=== PATIENT | female | born 1970 | race Caucasian/White ===

== ENCOUNTER 2016-04-06 12:33 | Emergency (ER) ==
[2016-04-06 12:34] VITALS: BMI 24.7
[2016-04-06 12:42] VITALS: BP 143/91; TEMP 99
[2016-04-06 12:50] LABS: BASOPHILS # (AUTO) 0.1 K/uL (0-0.2); BASOPHILS % (AUTO) 0.7 % (0.0-3.0); EOSINOPHILS # (AUTO) 0.1 K/ul (0.0-0.7); EOSINOPHILS % (AUTO) 0.8 % (0.0-7.0); HEMATOCRIT 39.5 % (37.0-47.0); HEMOGLOBIN 13.3 g/dl (12.0-16.0); IMMATURE GRANULOCYTE % (AUTO) 0.4 % (0.0-5.0); LYMPHOCYTES # (AUTO) 1.7 K/uL (0.60-3.4); LYMPHOCYTES % (AUTO) 16.3 (10.0-50.0); MEAN CORPUSCULAR HEMOGLOBIN 29.9 pg (27.0-31.0); MEAN CORPUSCULAR HGB CONC 33.7 (31.8-35.4); MEAN CORPUSCULAR VOLUME 88.8 fl (81.0-99.0); MONOCYTES # (AUTO) 0.6 K/uL (0.4-2.0); MONOCYTES % (AUTO) 5.4 (0-10); NEUTROPHILS # (AUTO) 8.2 K/ul (2.0-6.9); NEUTROPHILS % (AUTO) 76.4; PLATELET COUNT 245 10^3/uL (140-440); RED BLOOD COUNT 4.45 10^6/ul (4.20-5.40)
--- NOTE | 2016-04-06 12:59 | ED.PDOC ---
General ED Provider: Dr. RENAE ETIENNE JR Chief Complaint: Altered Mental Status Stated Complaint: presently jailed at [facility]--garth called and stated that another female inmate had snuck in meth and had given substance to this pt--she states was not aware of what it was--taken on 04/03/16--has been having odd behavior with loud talking--hearing voices in her head-garth states very anxious--feels soa at times[ End ]99.0 96 26 98% 143/91 [ End ] pt was talking out loud--y anxious-- hearing voices--felt like she was forgetting to breathe--admit to taking "something" on 04/03/16 from another inmate--is alert-- color good--aware of surroundings[ End ] Time Seen by Physician: 13:20 Mode of Arrival: Walk-In Information Source: Patient, Police Exam Limitations: No limitations Nursing and Triage Documentation Reviewed and Agree: No Review of Systems - Review Of Systems Constitutional: Reports: Malaise, Loss of appetite Eyes: Reports: Pain, Photophobia Ears, Nose, Mouth, Throat: Reports: No symptoms Respiratory: Reports: Short of air Cardiac: Reports: Chest pain (tightness; more on right), Lightheadedness, Palpitations GI: Reports: Abdominal pain (LLQ- I haven't had a bowel movemnet in forever") : Reports: No symptoms Musculoskeletal: Reports: No symptoms Skin: Reports: Lesions (red spots on right hand dorsum"hit it on the wall"), Lumps Neurological: Reports: Headache Endocrine: Reports: No symptoms Hematologic/Lymphatic: Reports: No symptoms All Other Systems: Other Past Medical History - Past Medical History Endocrine: Reports: None Cardiovascular: Reports: None Respiratory: Reports: None Hematological: Reports: None Gastrointestinal: Reports: None Genitourinary: Reports: None Neuro/Psych: Reports: None Musculoskeletal: Reports: None Cancer: Reports: None Last Menstrual Period: last week - Surgical History General Surgical History: Reports: Tubal ligation, Orthopedic (NECK) - Family History Family History: Reports: Unknown - Social History Smoking Status: Current every day smoker Hx Substance Use: No Alcohol Screening: Occasionally Physical Exam - Physical Exam Appearance: Well-appearing Ill-appearing: Moderate Pain Distress: Moderate Eyes: IRA, EOMI, Conjunctiva clear ENT: Ears normal, Nose normal, Oropharynx normal Neck: Supple Respiratory: Airway patent, Breath sounds equal, Respirations nonlabored, Rhonchi Cardiovascular: RRR, Pulses normal, No rub, No murmur GI/: Soft, No masses, Bowel sounds normal, No Organomegaly, Tender (LLQ concistent with constipation) Musculoskeletal: Normal strength, ROM intact, No edema, No calf tenderness Skin: Warm, Dry, Normal color Neurological: Sensation intact, Alert, Oriented Psychiatric: Anxious (hearing voices- yelling echoing saying things and not saying anything no threats or commands denies suicidality but notes she was hitting her head against the wall"to get them to stop") Interpretation - EKG Interpretation Time of EKG #1: 12:58 Rate: Normal Rhythm: Sinus Ectopy: None [place]: NL ST Segment: Normal Re-Evaluation - Re-Evaluation Time of Re-Evaluation: 14:40 (counsellor states not suicidal paitient willing to undergo treatment , note incident precipitated by "snorting a line") Status: Improved Vital Signs Stable: Yes Pain Level: no headache-offered geodon one time- no chrnic psych meds- anticipate resol Appearance: NAD (anxious(anticipate resolution no guarantee of durability of improvement- no known prior history of hallucinations)) Additional Comments: Noise echoing voices- no commands Critical Care Note - Critical Care Note Total Time (mins): 5 Course - Course Hematology/Chemistry: 04/06/16 12:45 04/06/16 12:45 Orders, Labs, Meds: Lab Review 04/06/16 04/06/16 12:45 13:45 WBC 10.70 H RBC 4.45 Hgb 13.3 Hct 39.5 MCV 88.8 MCH 29.9 MCHC 33.7 RDW Coeff of Roshan 12.2 Plt Count 245 Immature Gran % (Auto) 0.4 Neut % (Auto) 76.4 Lymph % (Auto) 16.3 [place] % (Auto) 5.4 Eos % (Auto) 0.8 Baso % (Auto) 0.7 Immature Gran # (Auto) 0.0 Neut # 8.2 H Lymph # 1.7 [place] # 0.6 Eos # 0.1 Baso # 0.1 Sodium 142 Potassium 4.3 Chloride 105 Carbon Dioxide 27 Anion Gap 14.3 BUN 19 H Creatinine 0.79 Estimated GFR (MDRD) 79.00 BUN/Creatinine Ratio 24.05 Glucose 96 Calcium 9.8 Total Bilirubin 0.74 AST 26 ALT 51 Alkaline Phosphatase 67 Total Protein 8.0 Albumin 4.4 Globulin 3.6 Albumin/Globulin Ratio 1.22 TSH 0.860 Urine Color Yellow Urine Clarity Cloudy Urine pH 5.5 Ur Specific [place] 1.025 Urine Protein 1+ Urine Glucose (UA) Negative Urine Ketones 2+ Urine Blood Trace-intact Urine Nitrite Negative Urine Bilirubin Negative Urine Urobilinogen 0.2 Ur Leukocyte Esterase Trace Urine Microscopic RBC 2-5 Urine Microscopic WBC 2-5 Ur Squamous Epith Cells 30-50 Amorphous Sediment 2+ Urine Bacteria 1+ Salicylate Level mg/dL < 5.0 Urine Opiates Screen Negative Ur Oxycodone Screen Negative Urine Methadone Screen Negative Ur Propoxyphene Screen Negative Acetaminophen < 3 L Ur Barbiturates Screen Negative U Tricyclic Antidepress Negative Ur Phencyclidine Scrn Negative Ur Amphetamine Screen Positive U Methamphetamines Scrn Negative U Benzodiazepines Scrn Positive Urine Cocaine Screen Negative U Cannabinoids Screen Negative Plasma/Serum Alcohol < 10.0 Orders Category Date Time Status EKG-(ED ONLY) Stat CARDIO 04/06/16 12:36 Completed Consult Mental Health [ED MENTAL HEALTH CONSULT] .ONCE EMERGENCY 04/06/16 13: 26 Active ED PRIEST APPLIED ONCE EMERGENCY 04/06/16 12:36 Active ACETAMINOPHEN Stat LAB 04/06/16 12:45 Completed BLOOD ALCOHOL Stat LAB 04/06/16 12:45 Completed CBC W/ AUTO DIFF Stat LAB 04/06/16 12:45 Completed COMPREHENSIVE METABOLIC PANEL Stat LAB 04/06/16 12:45 Completed DRUG SCREEN, URINE, RAPID Stat LAB 04/06/16 13:45 Completed SALICYLATE Stat LAB 04/06/16 12:45 Completed THYROID STIMULATING HORMONE Stat LAB 04/06/16 12:45 Completed URINALYSIS C & S IF INDICATED Stat LAB 04/06/16 13:45 Completed URINE CULTURE Stat LAB 04/06/16 13:45 Received Sumatriptan Succinate [Imitrex] MEDS 04/06/16 13:26 Discontinued 6 mg SUBCUT ONCE STA Ziprasidone Mesylate [Geodon] MEDS 04/06/16 14:49 Discontinued 20 mg IM ONCE STA CT HEAD W/O CONTRAST Stat RADS 04/06/16 13:25 Completed Medications Discontinued Medications Generic Name Dose Route Start Last Admin Trade Name Katie PRN Reason Stop Dose Admin Sumatriptan Succinate 6 mg 04/06/16 13:26 04/06/16 13:46 Imitrex SUBCUT 04/06/16 13:27 6 mg ONCE STA Administration Ziprasidone 20 mg 04/06/16 14:49 Geodon IM 04/06/16 14:50 ONCE STA Vital Signs: Temp Pulse Resp BP Pulse Ox 04/06/16 12:34 99 F 96 H 26 H 143/91 H 98 Departure - Departure Time of Disposition: 14:47 (return to incarceration) Disposition: HOME SELF-CARE Discharge Problem: Auditory hallucinations, Drug abuse Instructions: Adverse Drug Reaction (ED) Condition: Stable Pt referred to PMD for follow-up: Yes Additional Instructions: avoid illegal drugs may discuss symptoms with nurse Tylenol for discomfort, increase fluids- 6 cups daily return if uncontrollable expect symptoms to resolve Allergies/Adverse Reactions: Allergies No Known Allergies Allergy (Verified 04/06/16 12:46) Home Medications: Ambulatory Orders 1 [No Reported Medications] 11/11/13
[2016-04-06] MEDS ORDERED: IMITREX SUBCUT STA (13:26)
[2016-04-06 13:33] LABS: ACETAMINOPHEN < 3 ug/ml (10-30); ALANINE AMINOTRANSFERASE 51 U/L (12-78); ALBUMIN 4.4 g/dL (3.4-5.0); ALBUMIN/GLOBULIN RATIO 1.22; ALKALINE PHOSPHATASE 67 U/L (42-98); ANION GAP 14.3; ASPARTATE AMINO TRANSFERASE 26 U/L (15-37); BILIRUBIN,TOTAL 0.74 mg/dL (0.00-1.20); BLOOD UREA NITROGEN 19 mg/dL (7-18); BUN/CREATININE RATIO 24.05; CALCIUM 9.8 mg/dL (8.2-10.2); CARBON DIOXIDE 27 mmol/L (21-32); CHLORIDE 105 mmol/L (98-107); CREATININE 0.79 mg/dL (0.60-1.30); GLUCOSE 96 mg/dL (70-110); POTASSIUM 4.3 mmol/L (3.5-5.10); SALICYLATE < 5.0 mg/dL (2.8-20.0); SODIUM 142 mmol/L (136-145)
[2016-04-06 13:55] LABS: BILIRUBIN,URINE Negative (NEGATIVE); KETONES,URINE 2+ (NEGATIVE); LEUKOCYTE ESTERASE ,URINE Trace (NEGATIVE); NITRITE,URINE Negative (NEGATIVE); PH,URINE 5.5 (5-9); PROTEIN,URINE 1+ (NEGATIVE); URINE, BLOOD Trace-intact (NEGATIVE)
[2016-04-06 13:59] LABS: ADD URINE MICROSCOPIC YES
[2016-04-06 14:00] LABS: BACTERIA,URINE 1+ (NOT PRESENT)
--- NOTE | 2016-04-06 14:05 | CT ---
EXAM: CT Head HISTORY: Struck head on the wall COMPARISON: None TECHNIQUE: CT head performed without contrast FINDINGS: There is no mass effect, midline shift, or intracranial hemmorhage. Joel white different iation is preserved. There is no extra-axial collection. The ventricles, sulci, and basal cisterns are patent and symmetric. Questionable low-lying cerebellar tonsils versus technique/positioning. T here is no depressed calvarial fracture. The mastoid air cells are clear. Mild mucosal thickening m axillary sinuses IMPRESSION: 1. No acute intracranial abnormality. 2. Questionable low-lying cerebellar tonsils versus technique/positioning. 3. Mild sinus mucosal changes.
[2016-04-06 14:06] LABS: COCAIN SCREEN,URINE NEGATIVE (NEGATIVE)
[2016-04-06] MEDS ORDERED: GEODON IM STA (14:49)
== END 2016-04-06 15:45 | disposition home or self-care (01) ==
LOC: ED 12:33
DX: F15.151 Other stimulant abuse with stimulant-induced psychotic disorder with hallucinations (principal); R41.82 Altered mental status, unspecified; R51 Headache; R07.89 Other chest pain; R42 Dizziness and giddiness; R10.32 Left lower quadrant pain; K59.00 Constipation, unspecified; F17.210 Nicotine dependence, cigarettes, uncomplicated
CPT/HCPCS: 36415; 80053; 80306; 80307; 81001; 84443; 85025; 87086; 93005; 93010; 96372; 99283

== ENCOUNTER 2016-06-21 07:54 | Emergency (ER) ==
[2016-06-21 07:54] VITALS: BMI 24.7
[2016-06-21 07:58] VITALS: BP 100/67; TEMP 98.6
[2016-06-21 08:20] LABS: ADD URINE MICROSCOPIC YES; BILIRUBIN,URINE 2+ (NEGATIVE); KETONES,URINE 1+ (NEGATIVE); LEUKOCYTE ESTERASE ,URINE 2+ (NEGATIVE); NITRITE,URINE Negative (NEGATIVE); PROTEIN,URINE 2+ (NEGATIVE); URINE, BLOOD 2+ (NEGATIVE)
[2016-06-21 08:23] LABS: BACTERIA,URINE 2+ (NOT PRESENT)
--- NOTE | 2016-06-21 08:27 | ED.PDOC ---
General ED Provider: Dr. RENAE ETIENNE JR Chief Complaint: Back Pain Stated Complaint: states lower back pain past 3 days with fever--did not take temp but had chills and sweats--thinks might be "kidney infection"--same sx in past]3 days. Psychological Problems: 74: 04/06/16: Altered Mental Status. 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 Skin:(red spots on right hand dorsum"hit it on the wall"), Lumps: Tubal ligation, Orthopedic (NECK). Tender (LLQ concistent with constipation). Psychiatric: Anxious (hearing voices- yelling echoing saying things and not saying anything no threats or commands denies suicidality but notes she was hitting her head against the wall"to get them to stop"): 14: 40 (counsellor states not suicidal paitient willing to undergo treatment , note incident precipitated by "snorting a line"): no headache-offered michaeldon one time - no chrnic psych meds- anticipate resol(anticipate resolution no guarantee of durability of improvement- no known prior history of hallucinations)). Ur Amphetamine Screen Positive. U Methamphetamines Scrn Negative. U Benzodiazepines Scrn Positive. Urine Cocaine Screen Negative. U Cannabinoids Screen Negative. Plasma/Serum Alcohol < 10.0. Consult Mental Health [ED MENTAL HEALTH CONSULT] .ONCEEMERGENCY. Sumatriptan Succinate 6 mg 04/06/16. Ziprasidone 20 mg 04/06/16 14:49 Geodon IM 04/06/16 14:50. 04/06/16 12:34 99 F 96 H 26 H 143/91 H 98 (return to incarceration). Auditory hallucinations, Drug abuse. Instructions: Adverse Drug Reaction (ED). Pt referred to PMD for follow-up: Yesavoid illegal drugs. may discuss symptoms with nurseTylenol for discomfort, increase fluids- 6 cups dailyreturn if uncontrollableexpect symptoms to resolve. : 11/11/13 : Urinary Problem: noted dysuria, frequency and : Painful urination: 5 days: Still present: Left, Flank, Suprapubics: Burning, Dysuria, Frequency, Flank pain, Pain, Urgencys: Orthopedice: Well- appearing, >=1.030 Negative. her main issue is dysuria, frquency, urgency....she did have some fleeting lower back pain that has resolved..no fever, no hematuria..bactrim ds bid x 5 days..pyridium 200mg tid with food # 6..recheck with urine culture in 2 days..if urine cult is neg...you will need to see your sensitizer Time Seen by Physician: 08:26 Mode of Arrival: Walk-In Information Source: Patient Exam Limitations: No limitations Nursing and Triage Documentation Reviewed and Agree: No Review of Systems - Review Of Systems Constitutional: Reports: Chills, Fever, Malaise, Weakness Eyes: Reports: No symptoms Ears, Nose, Mouth, Throat: Reports: No symptoms Respiratory: Reports: No symptoms Cardiac: Reports: No symptoms GI: Reports: Abdominal pain : Reports: Burning, Dysuria, Frequency, Flank pain Musculoskeletal: Reports: No symptoms Skin: Reports: No symptoms Neurological: Reports: No symptoms Endocrine: Reports: No symptoms Hematologic/Lymphatic: Reports: No symptoms All Other Systems: Other Past Medical History - Past Medical History Endocrine: Reports: None Cardiovascular: Reports: None Respiratory: Reports: None Hematological: Reports: None Gastrointestinal: Reports: None Genitourinary: Reports: None Neuro/Psych: Reports: None Musculoskeletal: Reports: None Cancer: Reports: None Last Menstrual Period: 1 week ago - Surgical History General Surgical History: Reports: Tubal ligation, Orthopedic (NECK) - Family History Family History: Reports: Unknown - Social History Smoking Status: Current every day smoker, Heavy tobacco smoker Hx Substance Use: No Alcohol Screening: Occasionally Physical Exam - Physical Exam Appearance: Well-appearing, Thin Pain Distress: Mild Neck: Supple Respiratory: Airway patent GI/: Soft, Tender (right asuprapubic no cva or back tenderness) Skin: Warm, Dry, Normal color Neurological: Sensation intact, Motor intact, Reflexes intact, Cranial nerves intact, Alert, Oriented Critical Care Note - Critical Care Note Total Time (mins): 0 Course - Course Orders, Labs, Meds: Lab Review 06/21/16 08:10 Urine Color Yellow Urine Clarity Cloudy Urine pH 6.0 Ur Specific [place] 1.025 Urine Protein 2+ Urine Glucose (UA) Negative Urine Ketones 1+ Urine Blood 2+ Urine Nitrite Negative Urine Bilirubin 2+ Urine Urobilinogen 1.0 Ur Leukocyte Esterase 2+ Urine Microscopic RBC 5-10 Urine Microscopic WBC 20-30 Ur Squamous Epith Cells 10-20 Urine Bacteria 2+ Orders Category Date Time Status UA [URINALYSIS C & S IF INDICATED] Stat LAB 06/21/16 08:10 Results URINE CULTURE Routine LAB 06/21/16 08:24 Received Vital Signs: Temp Pulse Resp BP Pulse Ox 06/21/16 07:54 98.6 F 102 H 20 100/67 97 Departure - Departure Time of Disposition: 08:27 Disposition: HOME SELF-CARE Discharge Problem: UTI (urinary tract infection) Qualifiers: Urinary tract infection type: acute cystitis Hematuria presence: with hematuria Qualifier Code: (N30.01) Acute cystitis with hematuria Instructions: Urinary Tract Infection in Women (ED) Condition: Good Pt referred to PMD for follow-up: Yes Additional Instructions: increase fluids 8-10 cups daily for three days antibiotic until gone may check culture in two days recheck PMD one week, sooner if not resolved may follow up withy [facility] Prescriptions: Sulfamethoxazole/Trimethoprim [Bactrim Ds 800/160 mg] 1 tab PO Q12HR #14 tablet Phenazopyridine HCl [Pyridium] 200 mg PO TID PRN #10 tablet PRN Reason: PAIN Allergies/Adverse Reactions: Allergies No Known Allergies Allergy (Verified 06/21/16 08:00) Home Medications: Ambulatory Orders Phenazopyridine HCl [Pyridium] 200 mg PO TID PRN #10 tablet 06/21/16 Sulfamethoxazole/Trimethoprim [Bactrim Ds 800/160 mg] 1 tab PO Q12HR #14 tablet 06/21/16
== END 2016-06-21 08:35 | disposition home or self-care (01) ==
LOC: ED 07:54
DX: N30.01 Acute cystitis with hematuria (principal); F17.210 Nicotine dependence, cigarettes, uncomplicated
CPT/HCPCS: 81001; 87086; 87186; 99283

== ENCOUNTER 2017-04-02 01:07 | Emergency (ER) ==
[2017-04-02 01:10] VITALS: BMI 24.0
[2017-04-02] MEDS ORDERED: SODIUM CHLORIDE 1,000 ML IV STA (01:17)
[2017-04-02] MEDS ORDERED: ZOFRAN 4 MG/2 ML IVP STA (01:18)
[2017-04-02] MEDS: DILAUDID 1 MG/ML SYRINGE IVP PRN ×3 (01:35→04:00)
[2017-04-02] MEDS ORDERED: DILAUDID 1 MG/ML SYRINGE ONE ×3 (01:37→03:51)
--- NOTE | 2017-04-02 02:51 | CT ---
EXAM: CT scan abdomen pelvis with without contrast HISTORY: Left lower quadrant pain COMPARISON: None. FINDINGS: Contiguous axial images obtained through the abdomen pelvis both before after uneventful a dministration intravenous contrast utilizing 3-mm collimation. Sagittal and coronal reconstructions were imaged and reviewed The visualized lung bases are clear. Gallbladder is fluid filled without c holelithiasis. The liver, pancreas, spleen and adrenal glands have normal enhanced CT appearance. T he kidneys excrete contrast in a normal fashion bilaterally. The abdominal aorta is normal in course and caliber without aneurysm formation. There is moderate gaseous distension of the ascending and t ransverse colon. Mild stool retention is seen in the rectosigmoid colon. There is no free fluid or inflammatory changes.. Bone windows revealed no evidence of lytic or blastic lesions. IMPRESSION: Moderate distension of the ascending and transverse colon suggestive of colonic ileus.. Mild stool retention rectosigmoid colon. No evidence of free fluid or inflammatory changes.
--- NOTE | 2017-04-02 04:00 | ED.PDOC ---
General ED Provider: Dr. TREMAINE FRANKS-ER Chief Complaint: Abdominal Pain Stated Complaint: im hurting Time Seen by Physician: 00:10 Mode of Arrival: Walk-In Information Source: Patient Exam Limitations: No limitations Nursing and Triage Documentation Reviewed and Agree: Yes Reviewed sepsis parameters & appropriate labs ordered?: Yes System Inflammatory Response Syndrome: Not Applicable Sepsis Protocol: For patient's 13 years and over: Temp is 96.8 and below OR 101 and greater Pulse >90 BPM Resp >20/minute Acutely Altered Mental Status Are patient's symptoms suggestive of a new infection, such as: -Pneumonia -Skin, Soft Tissue -Endocarditis -UTI -Bone, Joint Infection -Implantable Device -Acute Abdominal Infection -Wound Infection -Meningitis -Blood Stream Catheter Infection -Unknown GI Complaint Exam - Abdominal Pain Complaint/Exam Onset: Sudden Duration: for several hours Symptoms Are: Still present Timing: Constant Initial Severity: Mild Current Severity: Moderate Location of Pain: Diffuse Character: Reports: Dull, Aching Alleviating: Reports: None Associated Signs and Symptoms: Reports: Nausea, Vomiting AAA Risk Factors: Reports: None Surgical Obstruction Risk Factors: Reports: None Patient Rh Status: Unknown Abdominal Findings: Present: None Differential Diagnoses: Pancreatitis, Ureteral Stone, PUD Quality Indicator For Non-Traumatic Chest Pain/Syncope: EKG Performed Review of Systems - Review Of Systems Constitutional: Reports: No symptoms Eyes: Reports: No symptoms Ears, Nose, Mouth, Throat: Reports: No symptoms Respiratory: Reports: No symptoms Cardiac: Reports: No symptoms GI: Reports: Abdominal pain, Nausea, Vomiting : Reports: No symptoms Musculoskeletal: Reports: No symptoms Skin: Reports: No symptoms Neurological: Reports: No symptoms Endocrine: Reports: No symptoms Hematologic/Lymphatic: Reports: No symptoms All Other Systems: Reviewed and Negative Past Medical History - Past Medical History Previously Healthy: Yes Endocrine: Reports: None Cardiovascular: Reports: None Respiratory: Reports: None Hematological: Reports: None Gastrointestinal: Reports: None Genitourinary: Reports: None Neuro/Psych: Reports: None Musculoskeletal: Reports: None Cancer: Reports: None Last Menstrual Period: 3 MONTHS AGO - Surgical History General Surgical History: Reports: Tubal ligation, Orthopedic (NECK) - Family History Family History: Reports: Unknown - Social History Smoking Status: Current every day smoker, Heavy tobacco smoker Hx Substance Use: No Alcohol Screening: Occasionally Lives: With family - Immunizations Tetanus Shot up to Date: Yes Physical Exam - Physical Exam Appearance: Well-appearing, No pain distress, Well-nourished Pain Distress: Moderate Eyes: IRA, EOMI, Conjunctiva clear ENT: Ears normal, Nose normal, Oropharynx normal Neck: Supple Respiratory: Airway patent, Breath sounds clear, Breath sounds equal, Respirations nonlabored Cardiovascular: RRR, Pulses normal, No rub, No murmur GI/: Soft, No masses, Bowel sounds normal, Tender Musculoskeletal: Normal strength Skin: Warm, Dry, Normal color Neurological: Sensation intact, Motor intact, Reflexes intact, Cranial nerves intact, Alert, Oriented Psychiatric: Affect appropriate, Mood appropriate Interpretation - Radiology Interpretation Radiology Interpretation By: Radiologist Radiology Results: Positive Exam Interpreted: CT Scan - EKG Interpretation Time of EKG #1: 04:00 Rate: Normal Rhythm: Sinus Ectopy: None [place]: NL ST Segment: Normal Interpretation: NSR Re-Evaluation - Re-Evaluation Time of Re-Evaluation: 04:01 Status: Improved Vital Signs Stable: Yes Pain Level: 1 Appearance: NAD Lungs: Clear Skin: Warm and Dry Neuro: Alert and Oriented X3 CV: RRR Critical Care Note - Critical Care Note Total Time (mins): 0 Course - Course Hematology/Chemistry: 04/02/17 01:30 04/02/17 01:30 Orders, Labs, Meds: Lab Review 04/02/17 04/02/17 04/02/17 01:30 01:30 01:55 WBC 8.52 RBC 4.45 Hgb 13.4 Hct 39.6 MCV 89.0 MCH 30.1 MCHC 33.8 RDW Coeff of Roshan 12.2 Plt Count 244 Immature Gran % (Auto) 0.5 Neut % (Auto) 56.7 Lymph % (Auto) 33.2 [place] % (Auto) 6.6 Eos % (Auto) 2.5 Baso % (Auto) 0.5 Immature Gran # (Auto) 0.0 Neut # 4.8 Lymph # 2.8 [place] # 0.6 Eos # 0.2 Baso # 0.0 Sodium 141 Potassium 4.0 Chloride 105 Carbon Dioxide 26 Anion Gap 14.0 BUN 14 Creatinine 0.78 Estimated GFR (MDRD) 80.00 BUN/Creatinine Ratio 17.94 Glucose 96 Calcium 9.6 Total Bilirubin 0.4 AST 14 L ALT 16 Alkaline Phosphatase 68 Total Creatine Kinase 38 Troponin I 0.0120 Total Protein 7.1 Albumin 3.7 Globulin 3.4 Albumin/Globulin Ratio 1.09 Amylase 43 Lipase 17 Urine Color Yellow Urine Clarity Clear Urine pH 5.5 Ur Specific [place] 1.025 Urine Protein Trace Urine Glucose (UA) Negative Urine Ketones Trace Urine Blood Trace-intact Urine Nitrite Positive Urine Bilirubin Negative Urine Urobilinogen 1.0 Ur Leukocyte Esterase Trace Urine Microscopic RBC 2-5 Urine Microscopic WBC 5-10 Ur Squamous Epith Cells 10-20 Calcium Oxalate Crystal 1+ Urine Bacteria Trace Urine Mucus 1+ Orders Category Date Time Status EKG-(ED ONLY) Stat CARDIO 04/02/17 01:17 Ordered NPO REMINDER: IMAGING ONCE CARE 04/02/17 01:19 Completed IV [ED IV/MEDIPORT/POWERPORT] .ONCE EMERGENCY 04/02/17 01:17 Active AMYLASE Stat LAB 04/02/17 01:30 Completed CBC W/ AUTO DIFF Stat LAB 04/02/17 01:30 Completed COMPREHENSIVE METABOLIC PANEL Stat LAB 04/02/17 01:30 Completed CREATINE KINASE Stat LAB 04/02/17 01:30 Completed LIPASE Stat LAB 04/02/17 01:30 Completed TROPONIN I Stat LAB 04/02/17 01:30 Completed URINALYSIS C & S IF INDICATED Stat LAB 04/02/17 01:55 Completed URINE CULTURE Stat LAB 04/02/17 01:55 Received 0.9 % Sodium Chloride [Saline Flush] MEDS 04/02/17 01:17 Ordered 1 syr IVF PRN PRN Hydromorphone HCl [Dilaudid 1 mg/ml Syringe] MEDS 04/02/17 01:18 Ordered 1 mg IVP Q1HR PRN Ondansetron HCl/Pf [Zofran 4 mg/2 ml] MEDS 04/02/17 01:18 Discontinued 4 mg IVP ONCE STA Sodium Chloride 0.9% [Sodium Chloride] 1,000 ml MEDS 04/02/17 01:17 Active IV 250 mls/hr CT ABDOMEN/PELVIS W/WO CONTRAS Stat RADS 04/02/17 01:19 Completed Medications Generic Name Dose Route Start Last Admin Trade Name Freq PRN Reason Stop Dose Admin Hydromorphone HCl 1 mg 04/02/17 01:18 04/02/17 02:35 Dilaudid 1 Mg/Ml Syringe IVP 1 mg Q1HR PRN Administration Abdominal Pain Sodium Chloride 1,000 mls @ 250 mls/hr 04/02/17 01:17 04/02/17 01:45 Sodium Chloride IV 04/02/17 05:16 250 mls/hr .Q4H STA Administration Sodium Chloride 1 syr 04/02/17 01:17 Saline Flush IVF PRN PRN To flush IV Discontinued Medications Generic Name Dose Route Start Last Admin Trade Name Freq PRN Reason Stop Dose Admin Ondansetron HCl 4 mg 04/02/17 01:18 04/02/17 01:35 Zofran 4 Mg/2 Ml IVP 04/02/17 01:19 4 mg ONCE STA Administration Vital Signs: Temp Pulse Resp BP Pulse Ox 04/02/17 01:07 97.3 F L 98 H 18 137/80 99 Departure - Departure Time of Disposition: 04:01 Disposition: TSF SHORT-TRM HOSP Discharge Problem: Abdominal pain Instructions: Acute Abdominal Pain (ED) Condition: Good Pt referred to PMD for follow-up: No IPMP verified?: No Allergies/Adverse Reactions: Allergies No Known Allergies Allergy (Verified 04/02/17 01:10) Home Medications: Ambulatory Orders 1 [No Reported Medications] 04/02/17 Transfer Form Completed: Yes Disposition Discussed With: Patient, Family
[2017-04-02 04:20] VITALS: BP 93/59; TEMP 97
== END 2017-04-02 04:30 | disposition short-term general hospital (02) ==
LOC: ED 01:07
DX: R10.84 Generalized abdominal pain (principal); R11.2 Nausea with vomiting, unspecified; F17.210 Nicotine dependence, cigarettes, uncomplicated
CPT/HCPCS: 36415; 80053; 81001; 82150; 82550; 83690; 84484; 85025; 87086; 93005; 93010; 96361; 96374; 96375; 96376; 99285

== ENCOUNTER 2017-04-02 04:29 | Outpatient (CLI) ==
[2017-04-02 01:10] VITALS: BMI 24.0
== END 2017-04-02 04:30 | disposition short-term general hospital (02) ==
LOC: AMBL 04:29
PROVIDERS: ATTEND Family Medicine
DX: R10.32 Left lower quadrant pain (principal); R11.10 Vomiting, unspecified

== ENCOUNTER 2017-05-27 16:50 | Outpatient (CLI) | END 2017-05-27 16:51 | disposition home or self-care (01) | LOC: AMBL 16:50 | PROVIDERS: ATTEND Emergency Medicine | DX: S01.112A Laceration without foreign body of left eyelid and periocular area, initial encounter (principal); R51 Headache; Y00.XXXA Assault by blunt object, initial encounter ==

== ENCOUNTER 2018-04-19 16:49 | Emergency (ER) | payer OTHER ==
[2018-04-19 17:04] VITALS: BP 116/80; TEMP 98.4; BMI 24.6
--- NOTE | 2018-04-19 17:58 | ED.PDOC ---
General ED Provider: Dr. MARCO SUNSHINE Chief Complaint: Rash Stated Complaint: rash face x 4 weeks Time Seen by Physician: 16:50 (seen with carlos a at all times ) Mode of Arrival: Walk-In Information Source: Patient Exam Limitations: No limitations Nursing and Triage Documentation Reviewed and Agree: Yes Does patient meet sepsis criteria?: No System Inflammatory Response Syndrome: Not Applicable Sepsis Protocol: For patient's 13 years and over: Temp is 96.8 and below OR 101 and greater Pulse >90 BPM Resp >20/minute Acutely Altered Mental Status Are patient's symptoms suggestive of a new infection, such as: -Pneumonia -Skin, Soft Tissue -Endocarditis -UTI -Bone, Joint Infection -Implantable Device -Acute Abdominal Infection -Wound Infection -Meningitis -Blood Stream Catheter Infection -Unknown Skin Complaint Exam - Skin Rash/Itching Complaint/Exam Onset/Duration: 4 weeks Symptoms Are: Still present Initial Severity: Mild Current Severity: Mild (see photos) Location: face see photos Potential Exposures: Reports: Unknown Aggravating: Reports: None Alleviating: Reports: None Associated Signs and Symptoms: Denies: Difficulty breathing, Fever, Chills Related History: Similar episode Skin Findings: Present: Maculae, Papules Differential Diagnoses: Allergic Reaction Review of Systems - Review Of Systems Constitutional: Reports: No symptoms Eyes: Reports: No symptoms Ears, Nose, Mouth, Throat: Reports: No symptoms Respiratory: Reports: No symptoms Cardiac: Reports: No symptoms GI: Reports: No symptoms : Reports: No symptoms Musculoskeletal: Reports: No symptoms Skin: Reports: Rash (see photos) Neurological: Reports: No symptoms Endocrine: Reports: No symptoms Hematologic/Lymphatic: Reports: No symptoms All Other Systems: Reviewed and Negative Past Medical History - Past Medical History Previously Healthy: Yes Endocrine: Reports: None Cardiovascular: Reports: None Respiratory: Reports: None Hematological: Reports: None Gastrointestinal: Reports: None Genitourinary: Reports: None Neuro/Psych: Reports: None Musculoskeletal: Reports: None Cancer: Reports: None Last Menstrual Period: 3 months ago--irregular - Surgical History General Surgical History: Reports: Tubal ligation, Orthopedic (NECK) - Family History Family History: Reports: Unknown - Social History Smoking Status: Current every day smoker, Heavy tobacco smoker Hx Substance Use: No Alcohol Screening: Occasionally Physical Exam - Physical Exam Appearance: Well-appearing, No pain distress, Well-nourished Eyes: IRA, EOMI, Conjunctiva clear ENT: Ears normal, Nose normal, Oropharynx normal Respiratory: Airway patent, Breath sounds clear, Breath sounds equal, Respirations nonlabored Cardiovascular: RRR, Pulses normal, No rub, No murmur GI/: Soft, Nontender, No masses, Bowel sounds normal, No Organomegaly Musculoskeletal: Normal strength, ROM intact, No edema, No calf tenderness Skin: Warm, Dry (rash face see photos) Neurological: Sensation intact, Motor intact, Reflexes intact, Cranial nerves intact, Alert, Oriented Psychiatric: Affect appropriate, Mood appropriate Critical Care Note - Critical Care Note Total Time (mins): 0 Course - Course Vital Signs: Temp Pulse Resp BP Pulse Ox 04/19/18 16:50 98.4 F 90 16 116/80 96 Departure - Departure Time of Disposition: 17:58 Disposition: HOME SELF-CARE Discharge Problem: Pruritic rash Instructions: Acute Rash (ED) Condition: Good Pt referred to PMD for follow-up: Yes IPMP verified?: No Additional Instructions: Please call your Family Physician as soon as possible to schedule a follow-up appointment. Allergies/Adverse Reactions: Allergies No Known Allergies Allergy (Verified 04/19/18 16:57)
== END 2018-04-19 18:07 | disposition home or self-care (01) ==
LOC: ED 16:49
DX: R21 Rash and other nonspecific skin eruption (principal); L29.9 Pruritus, unspecified
CPT/HCPCS: 99282

== ENCOUNTER 2022-09-06 08:59 | Observation (INO) ==
[2022-09-06] MEDS ORDERED: SODIUM CHLORIDE 1,000 ML IV STA ×2 (09:24)
[2022-09-06] MEDS ORDERED: SUBLIMAZE IVP ONE ×2 (09:25→13:15)
[2022-09-06] MEDS ORDERED: ZOFRAN 4 MG/2 ML IVP ONE (09:25)
[2022-09-06 09:31] LABS: BILIRUBIN,URINE 3+ (NEGATIVE); CLARITY,URINE Slightly (CLEAR); GLUCOSE, URINE (UA) 2+ (NEGATIVE); KETONES,URINE 1+ (NEGATIVE); LEUKOCYTE ESTERASE ,URINE 3+ (NEGATIVE); NITRITE,URINE Positive (NEGATIVE); PROTEIN,URINE 3+ (NEGATIVE); URINE, BLOOD 3+ (NEGATIVE); UROBILINOGEN,URINE >=8.0 (0.2)
[2022-09-06] MEDS ORDERED: VANCOMYCIN 1.5 GRAM/300 ML PREMIX 1.5 GM/300 ML BAG IV ONE (09:32)
[2022-09-06] MEDS ORDERED: MAXIPIME 2 GM/50 ML D5W 2 GM/50 ML BAG IV ONE (09:32)
[2022-09-06 09:42] LABS: COLOR,URINE ORANGE (YELLOW)
[2022-09-06 09:43] LABS: URINE RBC, MICROSCOPIC 20-30 (0-2)
[2022-09-06 09:44] LABS: BACTERIA,URINE 1+ (NOT PRESENT); URINE WBC, MICROSCOPIC 30-50 (0-2)
--- NOTE | 2022-09-06 09:44 | ED.PDOC ---
General ED Provider: Dr. MAAME SALAS DO Chief Complaint: Abdominal Pain Stated Complaint: Patient is a 52 yo F here for abdominal pain, dysuria and body aches Patient arrives afebrile with tachycardia 120 and stable blood pressure Patient arrives by POV She is currently fighting breast cancer She has had 3x chemo radiaiton events with [facility] Plan q 2 weeks for chemo tx then consider surgical options Patient reports 4 days of symptoms She is newly hpyoxic 91%, improved to 98% on 2 L NC Patient denies falls or injuries Patient meets sirs criteria With concern for sepsis-or neutropenic fever will start sepsis bundle She reported subjective fever at home and taking antipyretics. Time Seen by Provider: 09/06/22 09:03 Information Source: Patient Primary Care Provider: TREMAINE FRANKS Nursing and Triage Documentation Reviewed and Agree: Yes Does patient meet sepsis criteria?: No System Inflammatory Response Syndrome: Pulse >90 BPM Sepsis Protocol: For patient's 13 years and over: Temp is 96.8 and below OR 101 and greater Pulse >90 BPM Resp >20/minute Acutely Altered Mental Status Are patient's symptoms suggestive of a new infection, such as: -Pneumonia -Skin, Soft Tissue -Endocarditis -UTI -Bone, Joint Infection -Implantable Device -Acute Abdominal Infection -Wound Infection -Meningitis -Blood Stream Catheter Infection -Unknown Review of Systems Review Of Systems Constitutional: Reports Fever, Weakness and Sweats; Denies Chills Eyes: Denies Blurred vision or Drainage Ears, Nose, Mouth, Throat: Denies Ear pain, Nose pain or Nose discharge Respiratory: Denies Cough, Orthopnea or Wheezing Cardiac: Denies Chest pain or Lightheadedness GI: Reports Abdominal pain; Denies Constipated or Diarrhea : Reports Dysuria; Denies Discharge or Frequency Musculoskeletal: Denies Back pain or Joint pain Skin: Denies Bruising or Dryness Neurological: Denies Anxiety or Depressed Endocrine: Reports No symptoms Hematologic/Lymphatic: Reports No symptoms All Other Systems: Reviewed and Negative [facility] Medical History (Updated 09/06/22 @ 14:58 by BIA JONES) Breast cancer C50.919 - Malignant neoplasm of unspecified site of unspecified female breast (ICD-10) Family History Mother Cancer Hypertension Thyroid condition FATHER Diabetes Seasonal allergies Blood disease Adverse anesthesia outcome H/O elevated lipids Hypertension Thyroid condition Stroke Surgical History History of neck surgery Z98.890 - Other specified postprocedural states (ICD-10) History of tubal ligation Z98.51 - Tubal ligation status (ICD-10) Female Reproductive History Menstrual Hx Hysterectomy: No Hx Tubal Ligation: Yes Physical Exam Physical Exam Appearance: Reports Ill-appearing Ill-appearing: Moderate Pain Distress: Moderate Eyes: Reports IRA and EOMI ENT: Reports Ears normal and Nose normal Neck: Nonsupple Respiratory: Reports Airway patent and Breath sounds clear; Denies Crackles or Wheezes Cardiovascular: Reports Tachycardia; Denies No rub GI/: Reports Soft, Nontender and Other Musculoskeletal: Reports Normal strength and ROM intact Skin: Reports Warm and Dry Neurological: Reports Sensation intact and Motor intact Psychiatric: Reports Affect appropriate and Mood appropriate Interpretation EKG Interpretation EKG Interpretation By: ED Physician Time of EKG #1: 09:40 Rate: Tachy Rhythm: Sinus Ectopy: None [place]: [place] ST Segment: Normal Interpretation: No stemi, sinus tach 102 no qt prolongation Radiology Interpretation Radiology Interpretation By: ED Physician Exam Interpreted: CXR Xray Comments: No gross consolidaiotn no pneumothorax Critical Care Note Critical Care Note Total Critical Care Time (mins): 0 Course Course 09/06/22 09:43 09/06/22 09:43 Orders, Labs, Meds: Lab Review 09/06/22 09/06/22 09:15 09:43 WBC 1.03 L* RBC 3.81 L Hgb 11.4 L Hct 35.2 L MCV 92.4 MCH 29.9 MCHC 32.4 RDW Coeff of Roshan 12.2 Plt Count 66 L Neutrophils % (Manual) 6.0 L Band Neutrophils % 12.0 H Lymphocytes % (Manual) 52.0 H Monocytes % (Manual) 18.0 H Eosinophils % (Manual) 8.0 H Basophils % (Manual) 4.0 H Anisocytosis Not present Sodium 138.0 Potassium 3.80 Chloride 105.0 Carbon Dioxide 23.0 Anion Gap 13.80 BUN 8.0 Creatinine 0.70 Estimated GFR (MDRD) 89.00 BUN/Creatinine Ratio 11.42 Glucose 120.0 H Lactic Acid 1.14 Calcium 9.00 Total Bilirubin 0.40 AST 47.0 H ALT 49.0 H Alkaline Phosphatase 101.0 POC Venous Troponin I Cancelled Troponin I < 0.012 Total Protein 7.90 Albumin 4.20 Globulin 3.70 Albumin/Globulin Ratio 1.13 Lipase 67.0 Procalcitonin 0.48 H D-Dimer 444.28 Urine Color [place] Urine Clarity Slightly Urine pH 5.0 Ur Specific [place] <=1.005 Urine Protein 3+ H Urine Glucose (UA) 2+ H Urine Ketones 1+ H Urine Blood 3+ H Urine Nitrite Positive H Urine Bilirubin 3+ H Urine Urobilinogen >=8.0 Ur Leukocyte Esterase 3+ H Urine Microscopic RBC 20-30 Urine Microscopic WBC 30-50 Ur Squamous Epith Cells 2-5 Ur Renal Epithelial Cell 10-20 Urine Bacteria 1+ Orders Category Date Time Status OBSERVATION [PLACE PATIENT OBSERVATION] .TO MEDSUR ADMISSION 09/06/22 14:43 Active (MONITORED BED) EKG-(ED ONLY) Stat CARDIO 09/06/22 09:20 Completed ACTIVITY .Early Mobilization for VTE Prevention CARE 09/06/22 14:47 Active GIVE HS SNACK 2100 CARE 09/06/22 14:51 Active INTAKE & OUTPUT Q8HR CARE 09/06/22 14:48 Active ISOLATION ONCE CARE 09/06/22 14:53 Active NPO REMINDER: IMAGING ONCE CARE 09/06/22 10:19 Completed NPO REMINDER: IMAGING ONCE CARE 09/06/22 11:42 Completed TELEMETRY MONITORING TELE CARE 09/06/22 14:43 Active VITAL SIGNS Q8HR CARE 09/06/22 14:48 Active CLEAR LIQUID DIET DIETARY 09/06/22 Dinner Ordered HS SNACK DIETARY 09/06/22 Dinner Ordered BLOOD CULTURE Stat LAB 09/06/22 09:43 Received CBC W/ AUTO DIFF DAILY@0600 LAB 09/07/22 06:00 Ordered CBC W/ AUTO DIFF DAILY@0600 LAB 09/08/22 06:00 Ordered CBC W/ AUTO DIFF Stat LAB 09/06/22 09:43 Completed COMPREHENSIVE METABOLIC PANEL DAILY@0600 LAB 09/07/22 06:00 Ordered COMPREHENSIVE METABOLIC PANEL DAILY@0600 LAB 09/08/22 06:00 Ordered COMPREHENSIVE METABOLIC PANEL Stat LAB 09/06/22 09:43 Completed D-DIMER Stat LAB 09/06/22 09:43 Completed LACTIC ACID Stat LAB 09/06/22 09:43 Completed LIPASE Stat LAB 09/06/22 09:43 Completed MANUAL DIFFERENTIAL Stat LAB 09/06/22 09:43 Completed PROCALCITONIN Stat LAB 09/06/22 09:43 Completed TROPONIN I Stat LAB 09/06/22 09:43 Completed URINALYSIS C & S IF INDICATED Stat LAB 09/06/22 09:15 Completed URINE CULTURE Stat LAB 09/06/22 09:15 Received Acetaminophen [Tylenol] Meds 09/06/22 14:47 Ordered 650 mg PO Q4H PRN Aspirin [Aspirin Chewable] Meds 09/06/22 14:42 Discontinued 324 mg PO ONCE STA Cefepime 2 gm/D5w [Maxipime 2 gm/50 ml D5w] Meds 09/06/22 09:32 Discontinued 2 gm in 50 ml IV ONCE Fentanyl Citrate/Pf [Sublimaze] Meds 09/06/22 09:25 Discontinued 25 mcg IVP ONCE ONE Fentanyl Citrate/Pf [Sublimaze] Meds 09/06/22 13:15 Discontinued 50 mcg IVP ONCE ONE Morphine Sulfate [Morphine 2 mg/ml Syringe] Meds 09/06/22 14:54 Ordered 2 mg IVP Q4H PRN Ondansetron HCl/Pf [Zofran 4 mg/2 ml] Meds 09/06/22 09:25 Discontinued 4 mg IVP ONCE ONE Ondansetron HCl/Pf [Zofran 4 mg/2 ml] Meds 09/06/22 14:54 Ordered 4 mg IVP Q6H PRN Piperacillin Sodium/Tazobactam [Zosyn 3.375 gm] 3.375 Meds 09/06/22 15:00 Ordered gm 0.9 % Sodium Chloride [Sodium Chloride 100Ml] 100 ml IV Q8H Sodium Chloride 0.9% [Sodium Chloride] 1,000 ml Meds 09/06/22 15:00 Ordered IV 125 mls/hr Sodium Chloride 0.9% [Sodium Chloride] 1,000 ml Meds 09/06/22 09:24 Discontinued IV BOLUS Sodium Chloride 0.9% [Sodium Chloride] 1,000 ml Meds 09/06/22 09:24 Discontinued IV BOLUS Vancomycin/Water For Inj (Peg) [Vancomycin 1 Gram/200 Meds 09/07/22 09:00 Ordered ml Premix] 1 gm in 200 ml IV DAILY Vancomycin/Water For Inj (Peg) [Vancomycin 1.5 Gram/300 Meds 09/06/22 09:32 Discontinued ml Premix] 1.5 gm in 300 ml IV ONCE RESUSCITATION STATUS Routine OTHERS 09/06/22 14:[address] ABDOMEN/PELVIS W CONTRAST Stat RADS 09/06/22 10:18 Completed CXR [CHEST, 2 VIEWS PA & LAT] Stat RADS 09/06/22 09:20 Completed MRI ABDOMEN W/WO CONTRAST Stat RADS 09/06/22 11:42 Completed Medications Generic Name Dose Route Start Last Admin Trade Name Freellis PRN Reason Stop Dose Admin Acetaminophen 650 mg 09/06/22 14:47 Acetaminophen 325 Mg Tablet PO Q4H PRN Mild Pain Piperacillin Sod/Tazobactam 100 mls @ 100 mls/hr 09/06/22 15:00 Sod 3.375 gm/ Sodium Chloride IV 09/09/22 14:59 Q8H ELDA VANCOMYCIN/WATER FOR INJ (PEG) 1 gm in 200 mls @ 200 mls/hr 09/07/22 09:00 Vancomycin 1 Gram/200 Ml Premix IV 09/10/22 08:59 DAILY ELDA Sodium Chloride 1,000 mls @ 125 mls/hr 09/06/22 15:00 Sodium Chloride IV .Q8H ELDA Morphine Sulfate 2 mg 09/06/22 14:54 Morphine Sulfate 2 Mg/Ml Syringe IVP Q4H PRN Abdominal Pain Ondansetron HCl 4 mg 09/06/22 14:54 Ondansetron Hcl/Pf 4 Mg/2 Ml Sdv IVP Q6H PRN Nausea / Vomiting Discontinued Medications Generic Name Dose Route Start Last Admin Trade Name Freq PRN Reason Stop Dose Admin Aspirin 324 mg 09/06/22 14:42 Aspirin 81 Mg Tab.Chew PO 09/06/22 14:43 ONCE STA Fentanyl Citrate 25 mcg 09/06/22 09:25 09/06/22 09:43 Fentanyl 50 Mcg/Ml Sdv IVP 09/06/22 09:26 50 mcg ONCE ONE Administration Fentanyl Citrate 50 mcg 09/06/22 13:15 09/06/22 13:19 Fentanyl 50 Mcg/Ml Sdv IVP 09/06/22 13:16 50 mcg ONCE ONE Administration Sodium Chloride 1,000 mls @ 1,000 mls/hr 09/06/22 09:24 09/06/22 09:43 Sodium Chloride IV 09/06/22 10:23 1,000 mls/hr BOLUS STA Administration Sodium Chloride 1,000 mls @ 1,100 mls/hr 09/06/22 09:24 09/06/22 13:20 Sodium Chloride IV 09/06/22 10:18 1,100 mls/hr BOLUS STA Administration CEFEPIME 2 GM/D5W 2 gm in 50 mls @ 100 mls/hr 09/06/22 09:32 09/06/22 09:43 Maxipime 2 Gm/50 Ml D5w IV 09/06/22 10:01 100 mls/hr ONCE ONE Administration VANCOMYCIN/WATER FOR INJ (PEG) 1.5 gm in 300 mls @ 200 mls/hr 09/06/22 09:32 09/06/22 11:20 Vancomycin 1.5 Gram/300 Ml Premix IV 09/06/22 11:01 200 mls/hr ONCE ONE Administration Ondansetron HCl 4 mg 09/06/22 09:25 09/06/22 09:42 Ondansetron Hcl/Pf 4 Mg/2 Ml Sdv IVP 09/06/22 09:26 4 mg ONCE ONE Administration Vital Signs: Temp Pulse Resp BP Pulse Ox 09/06/22 14:42 97.6 F 102 H 18 115/64 100 09/06/22 11:00 97 18 107/62 97 09/06/22 09:03 97.8 F 124 H 20 120/67 91 L Pending Hospitalist I consulted [place] has no beds for transfer, [facility] Doc if needed CT concerned for low risk of cholecystitis or biliary dilation, MRCP ordered MDM: Patient is a 52 yo F here for abdominal pain Patient afebrile, tachycardic with stable blood pressure She is currently being treated with radiation and chemotherapy for breast cancer Exam concerning for infection 3+ labs and 3+ images reviewed by me Consults to Hospitalist team WDX: Neutropenic fever, sepsis of unknown origin, abdominal pain discomfort acute condition moderate complexity DDX: I considered cholecystitis, pyelonephritis, SBO but these are less likely SDOH: Patient will improve with admission and resolution of symptoms Patient and I discussed all findings Pain well controlled All questions answered Patient amenable to admission and plan Admit delayed for MRCP Discharge Plan Discharge Patient Disposition: PLACED OBSERVATION Discharge Problem: Dilated bile duct, Discomfort, Fever and neutropenia, Breast cancer, Abdominal pain of unknown etiology Did you review [place] [employer] for ALL controlled substances?: Not Applicable ED Provider: MAAME SALAS Physician Progress Note: []
--- NOTE | 2022-09-06 10:08 | DI ---
EXAM: CHEST TWO VIEW, FRONTAL AND LATERAL VIEWS. HISTORY: Hypoxia. Tachycardia. Fever. COMPARISON: 08/07/2022. FINDINGS: Right-sided chest port stable in position. The heart size is normal. There is no pulmonar y vascular congestion. The lungs are clear. No pleural effusion or pneumothorax is seen. No acute osseous abnormality identified. ACDF hardware again noted. Since the prior study, there has been no significant interval change. IMPRESSION: No acute cardiopulmonary process.
[2022-09-06 10:18] LABS: HEMATOCRIT 35.2 % (37.0-47.0); HEMOGLOBIN 11.4 g/dl (12.0-16.0); MEAN CORPUSCULAR HEMOGLOBIN 29.9 pg (27.0-31.0); MEAN CORPUSCULAR HGB CONC 32.4 (31.8-35.4); MEAN CORPUSCULAR VOLUME 92.4 fl (81.0-99.0); PLATELET COUNT 66 10^3/uL (140-440); RDW COEFFICIENT OF VARIATION 12.2 % (11.6-14.8); RED BLOOD COUNT 3.81 10^6/ul (4.20-5.40)
[2022-09-06 10:26] LABS: WHITE BLOOD COUNT 1.03 K/ul (4.6-10.2)
[2022-09-06 10:27] LABS: ANISOCYTOSIS NOT PRESENT (NOT PRESENT)
[2022-09-06 11:11] LABS: TROPONIN I < 0.012 ng/ml (0.0000-0.120)
--- NOTE | 2022-09-06 11:22 | CT ---
EXAM: CT ABDOMEN WITH CONTRAST. CT PELVIS WITH CONTRAST. HISTORY: Abdominal pain. COMPARISON: 04/02/2017. TECHNIQUE: Multiple axial images of the abdomen and pelvis were obtained following intravenous admin istration of 75 mL Omnipaque 350, low osmolar. Images were reformatted in the sagittal and coronal p esther. FINDINGS: Left breast nodular density axial image 1 is incompletely imaged although is similar to pr ior PET-CT. Lung bases are clear. Degenerative changes present in the spine. No discrete osseous lesion. No liver lesion. Gallbladder mildly distended. Mild prominence of the common duct measuring up to 0 .9 cm in the pancreatic head. There is a duodenal diverticulum near the ampulla. No biliary calcifi cations are seen. Pancreas, spleen, adrenal glands are normal. Right renal cyst measures up to 1.4 cm on axial image 33. Kidneys otherwise normal. There is no bowel obstruction or acute inflammation. The appendix is normal. Urinary bladder wall thickening with probable mucosal enhancement. Uterus demonstrates normal contou r. Phleboliths in the pelvis. No free fluid, free air or lymphadenopathy detected. The aorta is normal in caliber. IMPRESSION: 1. Cystitis. 2. Mild gallbladder distension and extrahepatic biliary dilatation. No associated inflammation or c alcifications. There is a duodenal diverticulum near the ampulla. Consider MRCP if there is concern for distal biliary obstruction. 3. Left breast nodularity, incompletely imaged, but similar to prior PET. All CT scans are performed using dose optimization techniques as appropriate to the performed exam an d include at least one of the following: Automated exposure control, adjustment of the mA and/or kV according t o size, and the use of iterative reconstruction technique.
--- NOTE | 2022-09-06 13:56 | MRI ---
EXAM: MRI ABDOMEN AND MRCP WITH AND WITHOUT CONTRAST TECHNIQUE: Multiplanar multisequence MRI of the abdomen before and after administration of IV contras t. Thin sliced radial 3-D MRCP was performed. HISTORY: Biliary dilatation COMPARISON: Today's CT scan FINDINGS: There is mild respiratory motion artifact causing limitations in the exam. Lung bases: Clear. Liver: Normal morphology. No suspicious hepatic lesions. Gallbladder: The gallbladder is distended. There is no intraluminal stone. There is no wall thicken ing or pericholecystic fluid. Bile ducts: No intra or extrahepatic bile ductal dilatation. Maximum dimension of the common duct paty sures approximately 7 mm. This is in the range of normal. There is no common duct stone or mass. Spleen: The spleen is not enlarged. Pancreas: Normal signal intensity and enhancement. No solid masses. The main pancreatic duct is not dilated. Adrenal glands: Within normal limits. Kidneys: No hydronephrosis. There are simple bilateral renal cysts. Aorta: The major vessels are patent. No Aneurysm. Bowel: Normal caliber. No obstruction or wall thickening. There is a diverticulum arising from the se cond portion of the duodenum. The diverticulum does not result in any mass effect on the adjacent co mmon duct or biliary system. Osseous structures: Unremarkable. IMPRESSION: Distended gallbladder. No intraluminal stone. No biliary or common duct obstruction.
[2022-09-06] MEDS ORDERED: ASPIRIN CHEWABLE PO STA (14:42)
[2022-09-06] MEDS ORDERED: TYLENOL PO PRN (14:47)
--- NOTE | 2022-09-06 15:04 | PCM ---
Date of Service Date Seen by Provider: 09/06/22 Time Seen by Provider: 15:30 Admit Day/Time Admission Date: 09/06/22 Admission Time: 15:00 Reason for Admission Chief Complaint: NEUTROPENIC FEVER Hospital Provider Hospital Provider: , [facility] Primary Care Physician Primary Care Physician: TREMAINE FRANKS History of Present Illness History of Present Illness: 52-year-old female with past medical history of COPD and breast cancer presented to the ER with complaints of fever and abdominal pain. Patient states symptoms have been present over the past 4 days and have worsened. States that the fever started 4 days ago and became as high as 104 today. Has been taking Tylenol and ibuprofen at home which has been effective. Also reports she has had urinary frequency and took a home UTI test that was positive and has been trying to treat with Azo. States that the urinary frequency is still present following treatment. Denies any other urinary symptoms. Patient has intermittent abdominal pain with that is in bilateral lower quadrants that she describes as cramping. No aggravating or alleviating factors. Also reports nausea and vomiting. On arrival to the ER the patient was tachypneic and hypoxic in the upper 80s. She was placed on 2 L nasal cannula tolerated well. Case Discussed With Case Discussed With: Patient's case was discussed with the ER Physicians, Dr. 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 status (ICD-10) Family History Mother Cancer Hypertension Thyroid condition FATHER Diabetes Seasonal allergies Blood disease Adverse anesthesia outcome H/O elevated lipids Hypertension Thyroid condition Stroke Social History Smoking and tobacco status: Current some day smoker Tobacco type: cigarettes Smoking packs per day: 0.5 Smoking cigarettes per day: 10.0 Years smoked: 25 Smoking pack-years: 12.50 Allergies Allergies Allergy/AdvReac Type Severity Reaction Status Date / Time No Known Allergies Allergy Verified 08/07/22 19:24 Current Medications Home Medications ondansetron HCl 4 mg tablet 4 mg PO Q8H 08/07/22 [History Confirmed 09/06/22 Last Taken Unknown] oxycodone 5 mg capsule 5 mg PO Q6H 08/07/22 [History Confirmed 09/06/22 Last Taken Unknown] filgrastim 300 mcg/mL injection solution (Neupogen) 480 mcg subcut ONCE 09/06/22 [History Confirmed 09/06/22 Last Taken Unknown] promethazine 12.5 mg tablet 12.5 mg PO Q4-6H PRN nausea and vomiting 09/06/22 [History Confirmed 09/06/22 Last Taken Unknown] Home Acetaminophen (Acetaminophen 325 Mg Tablet) 650 mg PO Q4H PRN PRN Reason: Mild Pain Albuterol Sulfate (Albuterol Sulfate 0.083% Vial.Neb) 2.5 mg NEB RTQ6H PRN PRN Reason: Wheezing Albuterol/Ipratropium (Ipratropium/Albuterol Vial.Neb) 3 ml NEB RTQ4H ELDA Piperacillin Sod/Tazobactam (Sod 3.375 gm/ Sodium Chloride) 100 mls @ 100 mls/hr IV Q6HR ELDA Stop: 09/09/22 17:59 Sodium Chloride (Sodium Chloride) 1,000 mls @ 125 mls/hr IV .Q8H ELDA VANCOMYCIN/WATER FOR INJ (PEG) (Vancomycin 1.25 Gm/250 Ml Bag) 1.25 gm in 250 mls @ 250 mls/hr IV Q12HR ELDA Stop: 09/09/22 20:59 Ibuprofen (Ibuprofen 600 Mg Tablet) 600 mg PO Q6H PRN PRN Reason: Mild Pain Methylprednisolone Sodium Succinate (Methylprednisolone Sod Succ/Pf 125 Mg/2 Ml Vial) 40 mg IVP Q8HR ELDA Morphine Sulfate (Morphine Sulfate 2 Mg/Ml Syringe) 2 mg IVP Q4H PRN PRN Reason: Abdominal Pain Ondansetron HCl (Ondansetron Hcl/Pf 4 Mg/2 Ml Sdv) 4 mg IVP Q6H PRN PRN Reason: Nausea / Vomiting Discontinued Medications Aspirin (Aspirin 81 Mg Tab.Chew) 324 mg PO ONCE STA Stop: 09/06/22 14:43 Fentanyl Citrate (Fentanyl 50 Mcg/Ml Sdv) 25 mcg IVP ONCE ONE Stop: 09/06/22 09:26 Last Admin: 09/06/22 09:43 Dose: 50 mcg Fentanyl Citrate (Fentanyl 50 Mcg/Ml Sdv) 50 mcg IVP ONCE ONE Stop: 09/06/22 13:16 Last Admin: 09/06/22 13:19 Dose: 50 mcg Sodium Chloride (Sodium Chloride) 1,000 mls @ 1,000 mls/hr IV BOLUS STA Stop: 09/06/22 10:23 Last Admin: 09/06/22 09:43 Dose: 1,000 mls/hr Sodium Chloride (Sodium Chloride) 1,000 mls @ 1,100 mls/hr IV BOLUS STA Stop: 09/06/22 10:18 Last Admin: 09/06/22 13:20 Dose: 1,100 mls/hr CEFEPIME 2 GM/D5W (Maxipime 2 Gm/50 Ml D5w) 2 gm in 50 mls @ 100 mls/hr IV ONCE ONE Stop: 09/06/22 10:01 Last Admin: 09/06/22 09:43 Dose: 100 mls/hr VANCOMYCIN/WATER FOR INJ (PEG) (Vancomycin 1.5 Gram/300 Ml Premix) 1.5 gm in 300 mls @ 200 mls/hr IV ONCE ONE Stop: 09/06/22 11:01 Last Admin: 09/06/22 11:20 Dose: 200 mls/hr VANCOMYCIN/WATER FOR INJ (PEG) (Vancomycin 1 Gram/200 Ml Premix) 1 gm in 200 mls @ 200 mls/hr IV DAILY [facility] Stop: 09/10/22 08:59 Ondansetron HCl (Ondansetron Hcl/Pf 4 Mg/2 Ml Sdv) 4 mg IVP ONCE ONE Stop: 09/06/22 09:26 Last Admin: 09/06/22 09:42 Dose: 4 mg Review of Systems Constitutional: Reports Fever (high as 104), Chills and Weakness Eyes: Reports No symptoms Ears: Reports No symptoms Mouth: Reports No symptoms Throat: Reports No symptoms Cardiovascular: Reports No symptoms Respiratory: Reports Cough (nonproductive) and Shortness of air Gastrointestinal: Reports Nausea and Vomiting Genitourinary: Reports Other (urinary urgency) Musculoskeletal: Reports No symptoms Endocrine: Reports No symptoms Hematology: Reports No symptoms Immunology: Reports No symptoms Psychiatric: Reports No symptoms Physical examination Most Recent Vital Signs: Most Recent Vital Signs Temperature 97.6 F 09/06/22 14:42 Temperature Source Infrared 09/06/22 14:42 Pulse Rate 102 H 09/06/22 14:42 Respiratory Rate 18 09/06/22 14:42 Blood Pressure 115/64 09/06/22 14:42 O2 Sat by Pulse Oximetry 100 09/06/22 14:42 Oxygen Flow Rate 2 09/06/22 14:42 Height 5 ft 4 in 09/06/22 09:03 Weight 150 lb 09/06/22 09:03 Telemetry Heart Rate 72 11/23/20 07:00 Telemetry SPO2 97 11/23/20 07:00 Appearance: Positive No Apparent Distress and Ill-Appearing Skin: Positive Warm and Good Turgor HEENT: Positive Normocephalic and Atraumatic Neck: Positive Supple and Midline Trachea Chest/Lungs: Positive Symmetrical With Equal Breath Sounds, Wheezes (expiratory in lung bases) and Good Air Movement all 4 Lung Hernandez Heart: Positive RRR and Pulses Normal GI/: Positive Soft, Bowel Sounds Normal, No Distention, No Organomegaly and Tender (bilateral lower quadrants) Musculoskeletal: Positive Normal Gait and Station Extremities: Positive Intact Peripheral Pulses, Stable Joints Without Laxity and Good ROM in All Joints Neurological: Positive Sensation Intact, Motor intact, Reflexes Intact, Alert, Oriented and Muscle Strength 5/5 in Upper and Lower Extremities Bilaterally Psychiatric: Positive Oriented x4, Appropriate Mood, Appropriate Affect, Intact Memory, Good Short-Term Recall, Good Long-Term Recall, Normal Judgement and Normal Insight Labs This Visit Labs This Visit: Labs This Visit 09/06/22 09/06/22 09:15 09:43 WBC 1.03 L* RBC 3.81 L Hgb 11.4 L Hct 35.2 L MCV 92.4 MCH 29.9 MCHC 32.4 RDW Coeff of Roshan 12.2 Plt Count 66 L Neutrophils % (Manual) 6.0 L Band Neutrophils % 12.0 H Lymphocytes % (Manual) 52.0 H Monocytes % (Manual) 18.0 H Eosinophils % (Manual) 8.0 H Basophils % (Manual) 4.0 H Anisocytosis Not present Sodium 138.0 Potassium 3.80 Chloride 105.0 Carbon Dioxide 23.0 Anion Gap 13.80 BUN 8.0 Creatinine 0.70 Estimated GFR (MDRD) 89.00 BUN/Creatinine Ratio 11.42 Glucose 120.0 H Lactic Acid 1.14 Calcium 9.00 Total Bilirubin 0.40 AST 47.0 H ALT 49.0 H Alkaline Phosphatase 101.0 POC Venous Troponin I Cancelled Troponin I < 0.012 Total Protein 7.90 Albumin 4.20 Globulin 3.70 Albumin/Globulin Ratio 1.13 Lipase 67.0 Procalcitonin 0.48 H D-Dimer 444.28 Urine Color [place] Urine Clarity Slightly Urine pH 5.0 Ur Specific [place] <=1.005 Urine Protein 3+ H Urine Glucose (UA) 2+ H Urine Ketones 1+ H Urine Blood 3+ H Urine Nitrite Positive H Urine Bilirubin 3+ H Urine Urobilinogen >=8.0 Ur Leukocyte Esterase 3+ H Urine Microscopic RBC 20-30 Urine Microscopic WBC 30-50 Ur Squamous Epith Cells 2-5 Ur Renal Epithelial Cell 10-20 Urine Bacteria 1+ Imaging Imaging: EXAM: CHEST TWO VIEW, FRONTAL AND LATERAL VIEWS. IMPRESSION: No acute cardiopulmonary process. EXAM: CT ABDOMEN WITH CONTRAST. CT PELVIS WITH CONTRAST. IMPRESSION: 1. Cystitis. 2. Mild gallbladder distension and extrahepatic biliary dilatation. No associated inflammation or calcifications. There is a duodenal diverticulum near the ampulla. Consider MRCP if there is concern for distal biliary obstruction. 3. Left breast nodularity, incompletely imaged, but similar to prior PET. EXAM: MRI ABDOMEN AND MRCP WITH AND WITHOUT CONTRAST IMPRESSION: Distended gallbladder. No intraluminal stone. No biliary or common duct obstruction. Review Statement Review Statement: I have independently reviewed and interpreted the labs/EKGs/imaging that were ordered by the ER provider. I have reviewed all outside records that are available currently in our EMR including imaging/notes/labs from previous visits. Plan Plan: 1. Sepsis in setting of UTI - met sepsis criteria in ER due to low WBC count, tachypnea, and tachycardia. Hx of breast cancer. Blood cultures pending. Urine Culture pending. received vancomycin, cefepime, and IV fluids in ER. Started on zosyn and vancomycin on admission, NS@125mL/hr 2. Acute Hypoxic Respiratory Failure in setting of COPD Exacerbation - Follows with Pulmonology and attempting to quit smoking, does not wear home O2; wean off O2 as tolerated, steroids and nebs, abx 3. Gallbladder distension - MRCP completed not showing any acute findings, treating with zosyn, clear liquid diet, morphine for pain, zofran for nausea 4. Neutropenia - chronic, active breast cancer and treatment, follows with Dr. Gilbert [facility], monitor 5. UTI - urine culture pending, treating with zosyn currently 6. COPD Exacerbation - see #2 for treatment plan 7. Breast Cancer - follows with Dr. Gilbert [facility], last treatment on 08/27/22 DVT Prophylaxis: Up ad gaurav Time Spent: Greater than 80 minutes spent with patient, 50% of the time spent with this patient was devoted to counseling and coordination of care. [facility] Plannin minutes spent discussing advance care planning. Smoking Cessation: 5 minutes spent discussing smoking cessation. Disposition: Admit to: Med/Surg Observation FULL Code Discussed Plan of Care with Dr. Ginny Hines. Medications Medication Orders: Medications Ordered Category Date Time Status Acetaminophen [Tylenol] Meds 09/06/22 14:47 Ordered 650 mg PO Q4H PRN Morphine Sulfate [Morphine 2 mg/ml Syringe] Meds 09/06/22 14:54 Ordered 2 mg IVP Q4H PRN Ondansetron HCl/Pf [Zofran 4 mg/2 ml] Meds 09/06/22 14:54 Ordered 4 mg IVP Q6H PRN Piperacillin Sodium/Tazobactam [Zosyn 3.375 gm] 3.375 Meds 09/06/22 15:00 Ordered gm 0.9 % Sodium Chloride [Sodium Chloride 100Ml] 100 ml IV Q8H Sodium Chloride 0.9% [Sodium Chloride] 1,000 ml Meds 09/06/22 15:00 Ordered IV 125 mls/hr Vancomycin/Water For Inj (Peg) [Vancomycin 1 Gram/200 Meds 09/07/22 09:00 Ordered ml Premix] 1 gm in 200 ml IV DAILY
[2022-09-06] MEDS ORDERED: MOTRIN PO PRN (15:39)
[2022-09-06] MEDS ORDERED: ALBUTEROL 0.083% NEB NEB PRN (15:39)
[2022-09-06 15:49] VITALS: BMI 26.2
[2022-09-06] MEDS: SODIUM CHLORIDE 1,000 ML IV SCH ×2 (16:24→22:39)
[2022-09-06] MEDS: ZOSYN 3.375 GM 3.375 GM in SODIUM CHLORIDE 100ML 100 ML IV SCH ×2 (17:30→23:06)
[2022-09-06] MEDS: DUONEB NEB SCH ×2 (17:45→21:20)
[2022-09-06] MEDS ORDERED: MIRALAX PO ONE (17:47)
[2022-09-06] MEDS ORDERED: MIRALAX ONE (17:50)
[2022-09-06] MEDS: SOLU-MEDROL 125 MG IVP SCH (20:28)
[2022-09-06] MEDS: VANCOMYCIN 1.25 GM/250 ML BAG 1.25 GM/250 ML BAG IV SCH (20:28)
[2022-09-06] MEDS: MORPHINE 2 MG/ML SYRINGE IVP PRN (20:48)
[2022-09-06] MEDS: ZOFRAN 4 MG/2 ML IVP PRN (20:48)
[2022-09-07] MEDS: DUONEB NEB SCH ×4 (01:02→14:00)
[2022-09-07] MEDS: MORPHINE 2 MG/ML SYRINGE IVP PRN ×3 (02:19→20:38)
[2022-09-07] MEDS: ZOFRAN 4 MG/2 ML IVP PRN ×4 (02:19→20:21)
[2022-09-07 05:10] LABS: HEMATOCRIT 28.7 % (37.0-47.0); HEMOGLOBIN 9.2 g/dl (12.0-16.0); MEAN CORPUSCULAR HGB CONC 32.1 (31.8-35.4); MEAN CORPUSCULAR VOLUME 93.5 fl (81.0-99.0); PLATELET COUNT 55 10^3/uL (140-440); RDW COEFFICIENT OF VARIATION 12.3 % (11.6-14.8); RED BLOOD COUNT 3.07 10^6/ul (4.20-5.40)
[2022-09-07] MEDS: SOLU-MEDROL 125 MG IVP SCH ×3 (05:11→20:37)
[2022-09-07] MEDS: ZOSYN 3.375 GM 3.375 GM in SODIUM CHLORIDE 100ML 100 ML IV SCH ×4 (05:11→23:20)
[2022-09-07 05:22] LABS: ALANINE AMINOTRANSFERASE 37.4 U/L (0-35); ALBUMIN 3.57 g/dL (3.5-5.0); ALKALINE PHOSPHATASE 74.8 U/L (38-126); BILIRUBIN,TOTAL 0.17 mg/dL (0.2-1.3); BLOOD UREA NITROGEN 8.1 mg/dL (7-17); CALCIUM 8.11 mg/dL (8.4-10.2); CARBON DIOXIDE 29.2 mmol/L (22-30.0); CHLORIDE 107.3 mmol/L (98-107); CREATININE 0.59 mg/dL (0.60-1.30); GLUCOSE 183.2 mg/dL (74-106); POTASSIUM 4.26 mmol/L (3.5-5.1); SODIUM 140.2 mmol/L (134.5-145); TOTAL PROTEIN 6.51 g/dL (6.3-8.2)
[2022-09-07 06:03] LABS: ANISOCYTOSIS NOT PRESENT (NOT PRESENT)
[2022-09-07] MEDS: VANCOMYCIN 1.25 GM/250 ML BAG 1.25 GM/250 ML BAG IV SCH ×2 (08:49→20:41)
[2022-09-07] MEDS ORDERED: VANCOMYCIN 1 GRAM/200 ML PREMIX 1 GM/200 ML BAG IV SCH (09:00)
--- NOTE | 2022-09-07 11:10 | PCM.PROG ---
Date/Time Seen Date Seen by Provider: 09/07/22 Time Seen by Provider: 08:30 Provider Provider: BIA JON[facility] Chief Complaint Chief Complaint: NEUTROPENIC FEVER Subjective Subjective: Continue fever overnight. Responding well to tylenol and ibuprofen. Lower abdominal pain present but improved from yesterday. Not requiring oxygen at this time. Feelings some better today. Objective Appearance: Positive No Apparent Distress, Alert and Oriented x3 and Ill- Appearing Chest/Lungs: Positive Symmetrical With Equal Breath Sounds, Clear to Auscultation Bilaterally and Good Air Movement all 4 Lung Hernandez Heart: Positive RRR and Pulses Normal GI/: Positive Soft, Nontender, Bowel Sounds Normal, No Distention and No Organomegaly Musculoskeletal: Positive Normal Gait and Station Neurological: Positive Sensation Intact, Motor intact, Reflexes Intact, Alert, Oriented and Muscle Strength 5/5 in Upper and Lower Extremities Bilaterally Vital Signs Vital Signs: Vital Signs: Last 24 Hours 09/06/22 14:42 09/06/22 15:27 09/06/22 15:27 Temperature 97.6 F 103.1 F H Temperature Source Infrared Oral Pulse Rate 102 H 106 H Pulse Rate [Apical] 107 H Respiratory Rate 18 24 H 24 H Blood Pressure 115/64 Blood Pressure Mean Blood Pressure Left Arm 111/67 Blood Pressure Location Blood Pressure Position Supine O2 Sat by Pulse Oximetry 100 96 Oxygen Delivery Method Nasal Cannula Nasal Cannula Oxygen Flow Rate 2 2 2 Height 5 ft 4 in Weight 153 lb Telemetry Type Telemetry Monitoring Telemetry Heart Rate EKG VA Interval EKG QRS Interval EKG QT Interval Telemetry Strip Reading 09/06/22 16:26 09/06/22 17:45 09/06/22 18:04 Temperature 100.9 F H Temperature Source Oral Pulse Rate 106 H Pulse Rate [Apical] Respiratory Rate 22 H Blood Pressure 122/66 Blood Pressure Mean 84 Blood Pressure Left Arm Blood Pressure Location Right Arm Blood Pressure Position Sitting O2 Sat by Pulse Oximetry 98 93 L Oxygen Delivery Method Nasal Cannula Room Air Oxygen Flow Rate 2 Height Weight Telemetry Type Remote Telemetry Telemetry Monitoring Started Telemetry Heart Rate 110 H EKG VA Interval 0.12 EKG QRS Interval 0.08 EKG QT Interval Telemetry Strip Reading Sinus Tachycardia 09/06/22 19:12 09/06/22 19:00 09/06/22 21:00 Temperature Temperature Source Pulse Rate Pulse Rate [Apical] 98 Respiratory Rate 18 Blood Pressure Blood Pressure Mean Blood Pressure Left Arm Blood Pressure Location Blood Pressure Position O2 Sat by Pulse Oximetry Oxygen Delivery Method Room Air Room Air Oxygen Flow Rate Height Weight Telemetry Type Remote Telemetry Telemetry Monitoring Continues Telemetry Heart Rate 99 EKG VA Interval 0.12 EKG QRS Interval 0.08 EKG QT Interval 0.30 Telemetry Strip Reading NSR no ectopy noted 09/06/22 22:00 09/07/22 02:00 09/07/22 01:00 Temperature 98.7 F 97 F L Temperature Source Oral Temporal Artery Scan Pulse Rate 88 88 Pulse Rate [Apical] Respiratory Rate 16 16 Blood Pressure 88/61 L 97/66 Blood Pressure Mean 70 76 Blood Pressure Left Arm Blood Pressure Location Left Arm Left Radial Artery Blood Pressure Position Supine Supine O2 Sat by Pulse Oximetry 94 L 93 L Oxygen Delivery Method Nasal Cannula Nasal Cannula Oxygen Flow Rate 2 2 Height Weight Telemetry Type Remote Telemetry Telemetry Monitoring Continues Telemetry Heart Rate 85 EKG VA Interval 0.15 EKG QRS Interval 0.07 EKG QT Interval 0.31 Telemetry Strip Reading NSR 09/07/22 05:14 09/07/22 05:16 09/07/22 07:00 Temperature 96.5 F L Temperature Source Temporal Artery Scan Pulse Rate 81 Pulse Rate [Apical] Respiratory Rate 18 Blood Pressure 94/59 L Blood Pressure Mean 70 Blood Pressure Left Arm Blood Pressure Location Right Arm Blood Pressure Position Supine O2 Sat by Pulse Oximetry 93 L Oxygen Delivery Method Nasal Cannula Room Air Oxygen Flow Rate 2 Height Weight Telemetry Type Remote Telemetry Telemetry Monitoring Continues Telemetry Heart Rate 84 EKG VA Interval 0.17 EKG QRS Interval 0.05 L EKG QT Interval Telemetry Strip Reading SR 09/07/22 08:00 09/07/22 09:06 09/07/22 09:16 Temperature Temperature Source Pulse Rate Pulse Rate [Apical] 84 Respiratory Rate 20 Blood Pressure Blood Pressure Mean Blood Pressure Left Arm Blood Pressure Location Blood Pressure Position O2 Sat by Pulse Oximetry Oxygen Delivery Method Room Air Room Air Oxygen Flow Rate Height 5 ft 4 in Weight 153 lb Telemetry Type Telemetry Monitoring Telemetry Heart Rate EKG VA Interval EKG QRS Interval EKG QT Interval Telemetry Strip Reading 09/07/22 10:00 Temperature 98.1 F Temperature Source Oral Pulse Rate 87 Pulse Rate [Apical] Respiratory Rate 18 Blood Pressure 111/69 Blood Pressure Mean 83 Blood Pressure Left Arm Blood Pressure Location Left Arm Blood Pressure Position Supine O2 Sat by Pulse Oximetry 93 L Oxygen Delivery Method Room Air Oxygen Flow Rate Height Weight Telemetry Type Telemetry Monitoring Telemetry Heart Rate EKG VA Interval EKG QRS Interval EKG QT Interval Telemetry Strip Reading Lab Results Lab Results: Lab Results: Last 24 Hours 09/07/22 09/06/22 04:50 09:43 WBC 1.60 L* RBC 3.07 L Hgb 9.2 L Hct 28.7 L D MCV 93.5 MCH 30.0 MCHC 32.1 RDW Coeff of Roshan 12.3 Plt Count 55 L Neutrophils % (Manual) 40.0 L Band Neutrophils % 8.0 H Lymphocytes % (Manual) 40.0 Monocytes % (Manual) 12.0 H Anisocytosis Not present Sodium 140.2 138.0 Potassium 4.26 3.80 Chloride 107.3 H 105.0 Carbon Dioxide 29.2 23.0 Anion Gap 7.96 13.80 BUN 8.1 8.0 Creatinine 0.59 L 0.70 Estimated GFR (MDRD) 108.00 89.00 BUN/Creatinine Ratio 13.72 11.42 Glucose 183.2 H D 120.0 H Lactic Acid 1.14 Calcium 8.11 L 9.00 Total Bilirubin 0.17 L 0.40 AST 32.0 47.0 H ALT 37.4 H 49.0 H Alkaline Phosphatase 74.8 D 101.0 POC Venous Troponin I Cancelled Troponin I < 0.012 Total Protein 6.51 7.90 Albumin 3.57 4.20 Globulin 2.94 3.70 Albumin/Globulin Ratio 1.21 1.13 Lipase 67.0 Additional Comments Additional Comments: I have independently reviewed and interpreted the labs/EKGs/imaging ordered during this hospital stay. I have reviewed outside records that are available in our EMR that pertain to medical stay including imaging/notes/labs from previous visits. Active Medications Active Medications: Medications Generic Name Dose Route Start Last Admin Trade Name Freq PRN Reason Stop Dose Admin Acetaminophen 650 mg 09/06/22 14:47 09/06/22 16:02 Acetaminophen 325 Mg Tablet PO 650 mg Q4H PRN Administration Mild Pain Albuterol Sulfate 2.5 mg 09/06/22 15:39 Albuterol Sulfate 0.083% Vial.Neb NEB RTQ6H PRN Wheezing Albuterol/Ipratropium 3 ml 09/06/22 18:00 09/07/22 09:17 Ipratropium/Albuterol Vial.Neb NEB Not Given RTQ4H ELDA Piperacillin Sod/Tazobactam 100 mls @ 100 mls/hr 09/06/22 18:00 09/07/22 05:11 Sod 3.375 gm/ Sodium Chloride IV 09/09/22 17:59 100 mls/hr Q6HR ELDA Administration Sodium Chloride 1,000 mls @ 125 mls/hr 09/06/22 15:00 09/06/22 22:39 Sodium Chloride IV 125 mls/hr .Q8H ELDA Administration VANCOMYCIN/WATER FOR INJ (PEG) 1.25 gm in 250 mls @ 250 mls/hr 09/06/22 21:00 09/07/22 08:49 Vancomycin 1.25 Gm/250 Ml Bag IV 09/09/22 20:59 250 mls/hr Q12HR ELDA Administration Ibuprofen 600 mg 09/06/22 15:39 09/06/22 16:01 Ibuprofen 600 Mg Tablet PO 600 mg Q6H PRN Administration Mild Pain Methylprednisolone Sodium Succinate 40 mg 09/06/22 21:00 09/07/22 05:11 Methylprednisolone Sod Succ/Pf 125 Mg/2 Ml Vial IVP 40 mg Q8HR ELDA Administration Morphine Sulfate 2 mg 09/06/22 14:54 09/07/22 02:19 Morphine Sulfate 2 Mg/Ml Syringe IVP 2 mg Q4H PRN Administration Abdominal Pain Ondansetron HCl 4 mg 09/06/22 14:54 09/07/22 08:26 Ondansetron Hcl/Pf 4 Mg/2 Ml Sdv IVP 4 mg Q6H PRN Administration Nausea / Vomiting Plan Plan: 1. Sepsis in setting of UTI - met sepsis criteria in ER due to low WBC count, tachypnea, and tachycardia. Hx of breast cancer. Blood cultures prelim negative x 24 hours. Urine Culture prelim showing gram negative rods. received vancomycin, cefepime, and IV fluids in ER. Continuing coverage of vanc and zosyn. NS@125mL/hr 2. Acute Hypoxic Respiratory Failure in setting of COPD Exacerbation - resolved, no longer requiring oxygen, patient refusing treatments, will d/c nebs and start home inhaler, follows with Pulmonology and attempting to quit smoking, steroids, abx 3. Gallbladder distension - improving, tolerating clears, advance diet as tolerated, MRCP completed not showing any acute findings, treating with zosyn, morphine for pain, zofran for nausea 4. Neutropenia - chronic, improving, active breast cancer and treatment, follows with Dr. Gilbert [facility], monitor 5. UTI - urine culture prelim gram negative rods, continue vanc and zosyn 6. COPD Exacerbation - improving, see #2 for treatment plan 7. Breast Cancer - follows with Dr. Gilbert [facility], last treatment on 08/27/22 DVT Prophylaxis: Up ad gaurav Review Statement Review Statement: I have personally discussed and reviewed the patient's visit/currently labs/imaging/decision making with Dr. Hines, my supervising attending. Greater that 50 minutes spent with patient, 50% of the time spent with this patient was devoted to counseling and coordination of care.
[2022-09-07] MEDS: SODIUM CHLORIDE 1,000 ML IV SCH ×3 (14:29→23:20)
[2022-09-07] MEDS: NICODERM 21 MG TD SCH (14:30)
[2022-09-07] MEDS ORDERED: VENTOLIN HFA IH PRN (14:54)
[2022-09-08] MEDS: SOLU-MEDROL 125 MG IVP SCH ×2 (05:22→13:00)
[2022-09-08 05:48] LABS: BASOPHILS % (AUTO) 0.4 % (0.0-3.0); HEMATOCRIT 26.4 % (37.0-47.0); HEMOGLOBIN 8.5 g/dl (12.0-16.0); IMMATURE GRANULOCYTE # (AUTO) 0.1 (0.0-1.0); IMMATURE GRANULOCYTE % (AUTO) 5.7 % (0.0-5.0); LYMPHOCYTES # (AUTO) 0.4 K/uL (0.60-3.4); LYMPHOCYTES % (AUTO) 17.8 (10.0-50.0); MEAN CORPUSCULAR HEMOGLOBIN 30.2 pg (27.0-31.0); MEAN CORPUSCULAR HGB CONC 32.2 (31.8-35.4); MONOCYTES # (AUTO) 0.3 K/uL (0.4-2.0); MONOCYTES % (AUTO) 10.9 (0-10); NEUTROPHILS # (AUTO) 1.6 K/ul (2.0-6.9); NEUTROPHILS % (AUTO) 65.2 % (42.2-75.2); PLATELET COUNT 72 10^3/uL (140-440); RDW COEFFICIENT OF VARIATION 12.6 % (11.6-14.8); RED BLOOD COUNT 2.81 10^6/ul (4.20-5.40); WHITE BLOOD COUNT 2.47 K/ul (4.6-10.2)
[2022-09-08] MEDS: ZOSYN 3.375 GM 3.375 GM in SODIUM CHLORIDE 100ML 100 ML IV SCH ×3 (05:50→17:00)
[2022-09-08 05:57] LABS: ALANINE AMINOTRANSFERASE 28.3 U/L (0-35); ALBUMIN 3.25 g/dL (3.5-5.0); ALKALINE PHOSPHATASE 66.2 U/L (38-126); ASPARTATE AMINO TRANSFERASE 39.4 U/L (14-36); BILIRUBIN,TOTAL 0.13 mg/dL (0.2-1.3); BLOOD UREA NITROGEN 4.9 mg/dL (7-17); CALCIUM 8.38 mg/dL (8.4-10.2); CARBON DIOXIDE 27.1 mmol/L (22-30.0); CHLORIDE 111.4 mmol/L (98-107); CREATININE 0.46 mg/dL (0.60-1.30); GLUCOSE 173.9 mg/dL (74-106); POTASSIUM 3.69 mmol/L (3.5-5.1); SODIUM 142.5 mmol/L (134.5-145); TOTAL PROTEIN 5.97 g/dL (6.3-8.2)
[2022-09-08] MEDS: VANCOMYCIN 1.25 GM/250 ML BAG 1.25 GM/250 ML BAG IV SCH ×3 (09:00→18:14)
[2022-09-08] MEDS: SODIUM CHLORIDE 1,000 ML IV SCH (09:01)
--- NOTE | 2022-09-08 09:24 | PCM.PROG ---
Date/Time Seen Date Seen by Provider: 09/08/22 Time Seen by Provider: 08:30 Provider [facility] BIA [facility]ON[facility] Chief Complaint Chief Complaint: NEUTROPENIC FEVER Subjective Subjective: Feeling much better today. Slept well last night. No fevers. No SOB. Abdominal pain improved. Objective Appearance: Positive No Apparent Distress and Alert and Oriented x3 Chest/Lungs: Positive Symmetrical With Equal Breath Sounds, Clear to Auscultation Bilaterally and Good Air Movement all 4 Lung Hernandez Heart: Positive RRR and Pulses Normal GI/: Positive Soft, Nontender, Bowel Sounds Normal, No Distention and No Organomegaly Musculoskeletal: Positive Normal Gait and Station Neurological: Positive Sensation Intact, Motor intact, Reflexes Intact, Alert, Oriented and Muscle Strength 5/5 in Upper and Lower Extremities Bilaterally Vital Signs Vital Signs: Vital Signs: Last 24 Hours 09/07/22 10:00 09/07/22 13:00 09/07/22 14:00 Temperature 98.1 F 97.9 F Temperature Source Oral Oral Pulse Rate 87 86 Pulse Rate [Apical] Respiratory Rate 18 20 Blood Pressure 111/69 119/71 Blood Pressure Mean 83 87 Blood Pressure Location Left Arm Left Arm Blood Pressure Position Supine Supine O2 Sat by Pulse Oximetry 93 L 95 Oxygen Delivery Method Room Air Room Air Telemetry Type Remote Telemetry Telemetry Monitoring Continues Telemetry Heart Rate 96 EKG HI Interval 0.13 EKG QRS Interval 0.06 Telemetry Strip Reading SR 09/07/22 13:56 09/07/22 14:00 09/07/22 18:00 Temperature 97.9 F Temperature Source Oral Pulse Rate 92 Pulse Rate [Apical] Respiratory Rate 18 Blood Pressure 108/65 Blood Pressure Mean 79 Blood Pressure Location Left Arm Blood Pressure Position Sitting O2 Sat by Pulse Oximetry 93 L Oxygen Delivery Method Room Air Room Air Room Air Telemetry Type Telemetry Monitoring Telemetry Heart Rate EKG HI Interval EKG QRS Interval Telemetry Strip Reading 09/07/22 19:00 09/07/22 21:58 09/07/22 20:00 Temperature 97.8 F Temperature Source Oral Pulse Rate 84 Pulse Rate [Apical] 84 Respiratory Rate 16 18 Blood Pressure 103/64 Blood Pressure Mean 77 Blood Pressure Location Right Arm Blood Pressure Position Supine O2 Sat by Pulse Oximetry 94 L Oxygen Delivery Method Room Air Room Air Telemetry Type Remote Telemetry Telemetry Monitoring Continues Telemetry Heart Rate 94 EKG HI Interval 0.17 EKG QRS Interval 0.07 Telemetry Strip Reading SR 09/08/22 01:00 09/08/22 01:47 09/07/22 20:00 Temperature 97.5 F L Temperature Source Oral Pulse Rate 77 Pulse Rate [Apical] Respiratory Rate 16 Blood Pressure 130/82 Blood Pressure Mean 98 Blood Pressure Location Left Arm Blood Pressure Position Supine O2 Sat by Pulse Oximetry 94 L Oxygen Delivery Method Room Air Room Air Telemetry Type Remote Telemetry Telemetry Monitoring Continues Telemetry Heart Rate 63 EKG HI Interval 0.17 EKG QRS Interval 0.06 Telemetry Strip Reading SR 09/08/22 05:02 09/08/22 05:27 09/08/22 07:00 Temperature 97.9 F Temperature Source Oral Pulse Rate 82 Pulse Rate [Apical] Respiratory Rate 16 Blood Pressure 124/80 Blood Pressure Mean 94 Blood Pressure Location Left Arm Blood Pressure Position Supine O2 Sat by Pulse Oximetry 95 Oxygen Delivery Method Room Air Room Air Telemetry Type Remote Telemetry Telemetry Monitoring Continues Telemetry Heart Rate 72 EKG HI Interval 0.16 EKG QRS Interval 0.07 Telemetry Strip Reading SR with PAC's Lab Results Lab Results: Lab Results: Last 24 Hours 09/08/22 09/08/22 08:35 05:35 WBC 2.47 L RBC 2.81 L Hgb 8.5 L Hct 26.4 L MCV 94.0 MCH 30.2 MCHC 32.2 RDW Coeff of Roshan 12.6 Plt Count 72 L D Immature Gran % (Auto) 5.7 H Neut % (Auto) 65.2 Lymph % (Auto) 17.8 [place] % (Auto) 10.9 H Eos % (Auto) 0.0 Baso % (Auto) 0.4 Neut # (Auto) 1.6 L Lymph # (Auto) 0.4 L [place] # (Auto) 0.3 L Eos # (Auto) 0.0 Baso # (Auto) 0.0 Immature Gran # (Auto) 0.1 Sodium 142.5 Potassium 3.69 Chloride 111.4 H Carbon Dioxide 27.1 Anion Gap 7.69 BUN 4.9 L Creatinine 0.46 L Estimated GFR (MDRD) 144.00 BUN/Creatinine Ratio 10.65 Glucose 173.9 H Calcium 8.38 L Total Bilirubin 0.13 L AST 39.4 H ALT 28.3 Alkaline Phosphatase 66.2 Total Protein 5.97 L Albumin 3.25 L Globulin 2.72 Albumin/Globulin Ratio 1.19 Vancomycin Trough 7.086 L Additional Comments Additional Comments: I have independently reviewed and interpreted the labs/EKGs/imaging ordered during this hospital stay. I have reviewed outside records that are available in our EMR that pertain to medical stay including imaging/notes/labs from previous visits. Active Medications Active Medications: Medications Generic Name Dose Route Start Last Admin Trade Name Freq PRN Reason Stop Dose Admin Acetaminophen 650 mg 09/06/22 14:47 09/06/22 16:02 Acetaminophen 325 Mg Tablet PO 650 mg Q4H PRN Administration Mild Pain Albuterol Sulfate 2.5 mg 09/06/22 15:39 Albuterol Sulfate 0.083% Vial.Neb NEB RTQ6H PRN Wheezing Albuterol Sulfate 2 puff 09/07/22 14:54 Albuterol Sulfate 8 Gm Inhaler IH Q4H PRN Wheezing Piperacillin Sod/Tazobactam 100 mls @ 100 mls/hr 09/06/22 18:00 09/08/22 05:50 Sod 3.375 gm/ Sodium Chloride IV 09/09/22 17:59 100 mls/hr Q6HR ELDA Administration Sodium Chloride 1,000 mls @ 125 mls/hr 09/06/22 15:00 09/08/22 09:01 Sodium Chloride IV 125 mls/hr .Q8H ELDA Administration VANCOMYCIN/WATER FOR INJ (PEG) 1.25 gm in 250 mls @ 250 mls/hr 09/06/22 21:00 09/07/22 20:41 Vancomycin 1.25 Gm/250 Ml Bag IV 09/09/22 20:59 250 mls/hr Q12HR ELDA Administration Ibuprofen 600 mg 09/06/22 15:39 09/06/22 16:01 Ibuprofen 600 Mg Tablet PO 600 mg Q6H PRN Administration Mild Pain Methylprednisolone Sodium Succinate 40 mg 09/06/22 21:00 09/08/22 05:22 Methylprednisolone Sod Succ/Pf 125 Mg/2 Ml Vial IVP 40 mg Q8HR ELDA Administration Morphine Sulfate 2 mg 09/06/22 14:54 09/07/22 20:38 Morphine Sulfate 2 Mg/Ml Syringe IVP 2 mg Q4H PRN Administration Abdominal Pain Nicotine 1 patch 09/07/22 13:00 09/07/22 14:30 Nicotine 21 Mg Patch.Td24 TD 1 patch DAILY ELDA Administration Ondansetron HCl 4 mg 09/06/22 14:54 09/07/22 20:21 Ondansetron Hcl/Pf 4 Mg/2 Ml Sdv IVP 4 mg Q6H PRN Administration Nausea / Vomiting Plan Plan: 1. Sepsis in setting of UTI - ruled out, met sepsis criteria in ER due to low WBC count, tachypnea, and tachycardia. Hx of breast cancer. Blood cultures prelim negative x 24 hours. Urine Culture prelim showing gram negative rods. received vancomycin, cefepime, and IV fluids in ER. Continuing coverage of vanc and zosyn 2. Acute Hypoxic Respiratory Failure in setting of COPD Exacerbation - resolved, no longer requiring oxygen, patient refusing treatments, will d/c nebs and start home inhaler, follows with Pulmonology and attempting to quit smoking, steroids, abx 3. Gallbladder distension - improving, tolerating regular diet, MRCP completed not showing any acute findings, treating with zosyn, morphine for pain, zofran for nausea 4. Neutropenia - chronic, improving, active breast cancer and treatment, follows with Dr. Gilbert [facility], monitor 5. UTI - urine culture + E. Coli ESBL -, sensitive to zosyn, continue current plan 6. COPD Exacerbation - resolved, see #2 for treatment plan 7. Breast Cancer - follows with Dr. Gilbert [facility], last treatment on 08/27/22, follow-up on Tuesday09/10/21 DVT Prophylaxis: Up ad gaurav Patient has been fever free for >24 hours with antibiotics. Due to neutropenia d/t cancer, plan to keep today for 1 more day of IV antibiotics then d/c tomorrow AM if status does not change. Review Statement Review Statement: I have personally discussed and reviewed the patient's visit/currently labs/imaging/decision making with Dr. Hines, my supervising attending. Greater that 50 minutes spent with patient, 50% of the time spent with this patient was devoted to counseling and coordination of care.
[2022-09-08] MEDS: NICODERM 21 MG TD SCH (10:55)
[2022-09-08] MEDS: ZOFRAN 4 MG/2 ML IVP PRN (16:57)
--- NOTE | 2022-09-08 16:57 | DCSUM ---
Admission Date Admission Date: 09/06/22 Discharge Date Discharge Date: 09/08/22 Admission Diagnosis Admission Diagnosis: Sepsis, UTI Discharge Diagnosis Discharge Diagnosis: UTI Hospital Provider Hospital Provider: BIA JONES[place] [facility] [place] Primary Care Physician: TREMAINE FRANKS Summary of History and Physical Summary of History and Physical: 52-year-old female with past medical history of COPD and breast cancer presented to the ER with complaints of fever and abdominal pain. Patient states symptoms have been present over the past 4 days and have worsened. States that the fever started 4 days ago and became as high as 104 today. Has been taking Tylenol and ibuprofen at home which has been effective. Also reports she has had urinary frequency and took a home UTI test that was positive and has been trying to treat with Azo. States that the urinary frequency is still present following treatment. Denies any other urinary symptoms. Patient has intermittent abdominal pain with that is in bilateral lower quadrants that she describes as cramping. No aggravating or alleviating factors. Also reports nausea and vomiting. On arrival to the ER the patient was tachypneic and hypoxic in the upper 80s. She was placed on 2 L nasal cannula tolerated well Hospital Course Subjective: Patient met sepsis criteria in the ER due to low WBC count, tachypnea, and tachycardia. She was started on vancomycin and cefepime and received IV fluids. Vancomycin was continued and zosyn was started. Blood cultures were found to be negative after 48 hours. Urinalysis revealed UTI and culture was obtained. Culture growth showed E. Coli ESBL - Sensitive to Zosyn and continued. For treatment of acute hypoxic respiratory failure due to COPD exacerbation, she was started on steroids and nebulizer treatments. Improved drastically after day 1 and no longer required oxygen and began refusing breathing treatments. Restarted home inhaler. Gallbladder was found to be enlarged on CT scan in ER and MRCP was recommended a nd completed. It did not show any acute findings other than gallbladder distension. Patient was started on clear liquid diet initially and advanced as tolerated throughout her stay. She was tolerating a regular diet by discharge. Her WBC count in the ER was 1.3 and increased to 2.6 by end of stay with course of antibiotics. Fever resolved after 24 hours of antibiotics as well. Neutropenia present also due to patient history of breast cancer and undergoing chemotherapy. [facility] on [facility]. Had intended on patient standing throughout the night to receive further IV antibiotics but due to family emergency patient requested discharge as soon as possible. Appearance: Pleasant, No Apparent Distress and Alert HEENT: MMM CVS: No Murmur Abdomen: Soft and Non-Tender Respiratory: No Dyspnea Extremities: No Edema Vital Signs: Most Recent Vital Signs Temperature 98.2 F 09/08/22 14:00 Temperature Source Temporal Artery Scan 09/08/22 14:00 Temperature Source Infrared 09/06/22 14:42 Pulse Rate 84 09/08/22 14:00 Respiratory Rate 17 09/08/22 14:00 Blood Pressure 130/86 09/08/22 14:00 Blood Pressure Mean 100 09/08/22 14:00 Blood Pressure Left Arm 111/67 09/06/22 15:27 Blood Pressure Location Left Arm 09/08/22 14:00 Blood Pressure Position Supine 09/08/22 14:00 O2 Sat by Pulse Oximetry 95 09/08/22 14:00 Oxygen Delivery Method Room Air 09/08/22 14:00 Oxygen Flow Rate 2 09/07/22 05:14 Height 5 ft 4 in 09/07/22 09:06 Weight 153 lb 09/07/22 09:06 Telemetry Type Remote Telemetry 09/08/22 13:00 Telemetry Monitoring Continues 09/08/22 13:00 Telemetry Heart Rate 75 09/08/22 13:00 Telemetry SPO2 97 11/23/20 07:00 EKG UT Interval 0.15 09/08/22 13:00 EKG QRS Interval 0.07 09/08/22 13:00 EKG QT Interval 0.31 09/07/22 01:00 Telemetry Strip Reading NSR 09/08/22 13:00 Lab Results Last 24 Hours: 09/08/22 09/08/22 08:35 05:35 WBC 2.47 L RBC 2.81 L Hgb 8.5 L Hct 26.4 L MCV 94.0 MCH 30.2 MCHC 32.2 RDW Coeff of Roshan 12.6 Plt Count 72 L D Immature Gran % (Auto) 5.7 H Neut % (Auto) 65.2 Lymph % (Auto) 17.8 [place] % (Auto) 10.9 H Eos % (Auto) 0.0 Baso % (Auto) 0.4 Neut # (Auto) 1.6 L Lymph # (Auto) 0.4 L [place] # (Auto) 0.3 L Eos # (Auto) 0.0 Baso # (Auto) 0.0 Immature Gran # (Auto) 0.1 Sodium 142.5 Potassium 3.69 Chloride 111.4 H Carbon Dioxide 27.1 Anion Gap 7.69 BUN 4.9 L Creatinine 0.46 L Estimated GFR (MDRD) 144.00 BUN/Creatinine Ratio 10.65 Glucose 173.9 H Calcium 8.38 L Total Bilirubin 0.13 L AST 39.4 H ALT 28.3 Alkaline Phosphatase 66.2 Total Protein 5.97 L Albumin 3.25 L Globulin 2.72 Albumin/Globulin Ratio 1.19 Vancomycin Trough 7.086 L Discharge Instructions Discharge Planning: Discharge Planning > 40 minutes If patient is discharged with left ventricular systolic dysfunction: No Discharged with a beta silas? [] If no, why not? [] NA Discharged with an ankush/arb? [] If no, why not? [] NA Activity as tolerated. Regular diet Follow-up with PCP next week. Complete course of levaquin x 7 days Discharge Medications: Medications at Discharge (Home Meds & RX) ondansetron HCl 4 mg tablet 4 mg PO Q8H 08/07/22 oxycodone 5 mg capsule 5 mg PO Q6H 08/07/22 filgrastim 300 mcg/mL injection solution (Neupogen) 480 mcg subcut ONCE 09/06/22 promethazine 12.5 mg tablet 12.5 mg PO Q4-6H PRN nausea and vomiting 09/06/22 Discharge Plan Discharge Discharge Orders: Discharge Patient (ONCE); Ordered 09/08/22 Ordered By: LUCIA PARKS Activity Restrictions/Additional Instructions: Activity as tolerated. Complete course of antibiotics Follow-up with PCP next week, Drink plenty of fluids. Instructions: Levofloxacin (By mouth), Urinary Tract Infection in Women (ED) Care Plan Goals: Problem: Alteration in Comfort/Pain Goal: Manage pain at a tolerable level Instructions: Monitor character, location and intensity Express expectations of pain relief Pain medication as ordered Position for maximal comfort Pain management prior to activities Problem: Infection Goal #1: No signs/symptoms of infection Instructions: Monitor for sign/symptoms of infection Monitor temperature Goal #2: White blood cell counts Within Normal Limits Instructions: Obtain labs per physician orders Patient Disposition: HOME SELF-CARE Prescriptions: New levofloxacin 500 mg tablet 500 mg PO DAILY Qty: 7 0RF Continued promethazine 12.5 mg tablet 12.5 mg PO Q4-6H PRN (Reason: nausea and vomiting) Neupogen 300 mcg/mL solution 480 mcg subcut ONCE oxycodone 5 mg capsule 5 mg PO Q6H ondansetron HCl 4 mg tablet 4 mg PO Q8H Did you review [place] [employer] for ALL controlled substances?: No Discussed opioids are addictive and Narcan is available by prescription or from pharmacy.: No Condition: Fair
[2022-09-08] MEDS: MORPHINE 2 MG/ML SYRINGE IVP PRN (17:00)
[2022-09-08 18:14] VITALS: BP 121/70; PULSE 83; RESP 18; TEMP 97.8
[2022-09-08] MEDS ORDERED: MIRALAX PO ONE (18:21)
== END 2022-09-08 20:16 | disposition home or self-care (01) ==
LOC: MEDSURG B 08:59 → ED 08:59 → MEDSURG B 15:43
PROVIDERS: ADMIT Hospitalist; ATTEND Nurse Practitioner Family
DX: J44.1 Chronic obstructive pulmonary disease with (acute) exacerbation; B96.29 Other Escherichia coli [E. coli] as the cause of diseases classified elsewhere; J96.01 Acute respiratory failure with hypoxia; D70.3 Neutropenia due to infection; A41.9 Sepsis, unspecified organism; R10.9 Unspecified abdominal pain; R50.81 Fever presenting with conditions classified elsewhere; K83.8 Other specified diseases of biliary tract; N39.0 Urinary tract infection, site not specified; R00.0 Tachycardia, unspecified; C50.919 Malignant neoplasm of unspecified site of unspecified female breast; Z16.12 Extended spectrum beta lactamase (ESBL) resistance